=== PATIENT | male | born 1960 | race African-American/Black ===

== ENCOUNTER 2017-02-11 13:32 | Inpatient (IN) ==
--- NOTE | 2017-02-11 14:56 | Ultrasound Report ---
Right upper quadrant ultrasound Indication: Abdominal Pain, nausea vomiting Findings: The liver is normal in size and echogenicity. The gallbladder has small amount of sludge. No definite calculi are seen. The gallbladder wall thickness is 5.0 mm . The common bile duct measures 17 mm. The pancreatic head is enlarged with the decreased echogenicity, the mass measures up to 7.2 x 5.7 x 4.8 cm cm in size. There is enlargement of the pancreatic duct. This measures up to 4 mm. The right kidney is normal in size and measures 11.7 cm . Numerous system present on the kidney, the largest measures 4.8 x 3.6 x 3.0 cm in size. No free fluid or free air seen. Impression: Suggestion mass in the head of the pancreas measures up to 7.2 cm in size with distended bile duct and pancreatic ducts. CT may be useful to further evaluate this abnormality. Small amount of gallbladder sludge. Numerous simple appearing renal cyst. No other evidence of abnormality demonstrated. Ultrasound images stored and captured. PROCEDURE INTERPRETED AT [facility] DEPARTMENT OF RADIOLOGY Final Report Signed by: Dr. Dallas Hammond
[2017-02-11 17:28] LABS: Basophils # 0.1 10*3/uL (0.0-0.2); Basophils % 1.2 % (0.0-0.8); Eosinophils # 0.8 10*3/uL (0.0-0.87); Eosinophils % 11.5 % (0.00-10.9); Hematocrit 26.8 VOL% (42.0-52.0); Immature Granulocytes % 0.4 %; Immature Granulocytes Absolute 0.03 #; Lymphocytes # 1.2 10*3/uL (1.4-4.0); Lymphocytes % 16.7 % (21.2-54.2); Mean Corpuscular HGB Conc 33.6 GM/DL (32-36); Mean Corpuscular Hemoglobin 30 PG (27-34); Mean Corpuscular Volume 88.2 FL (87-102); Mean Platelet Volume 9.2 FL (9.6-12.0); Monocytes # 0.5 10*3/uL (0.11-0.8); Monocytes % 7.8 % (1.7-12.7); Neutrophils # 4.3 10*3/uL (1.4-7.4); Neutrophils % 62.4 % (38.7-73.9); Platelet Count 236 T/CUMM (130-400); Red Blood Count 3.04 MC/CUMM (3.8-5.5); Red Cell Distribution Width 23.7 % (9.3-17.3)
--- NOTE | 2017-02-11 17:47 | Hospitalist History & Physical ---
Assessment and Plan (1) Obstructive jaundice Status: Acute Current Visit: Yes (2) Pancreatic mass Status: Acute Current Visit: Yes (3) End stage renal disease Status: Acute Current Visit: Yes (4) Hypertension Status: Acute Assessment and plan: Plan for this patient 1. Admit the patient our service 2. GI consult 3. CT scan with p.o. and IV contrast 4. Nephrology consult 5. Continue home meds appropriate 6. Suspect this is cancer check tumor markers 7. CMP tonight and tomorrow Current Visit: Yes History of Present Illness Chief complaint: Pancreatic mass per ultrasound History of present illness: Mr. Millan is a 57 year old male with past medical history significant for end- stage renal disease and obstructive sleep apnea who was at hemodialysis yesterday. Apparently patient was noted is being real jaundice in his eyes. They scheduled him for an ultrasound. Per ultrasound he had an obstructive jaundice appearance. We were contacted by the wood patternmaker apprentice on-call. We are admitting the patient to our service and consulting them. According to the patient he has had nausea and vomiting and diarrhea 3-4 weeks. He has had a weight loss of 50 pounds over the past few months. We are admitting him as a direct inpatient admit. Home Medications Medication Instructions Recorded Confirmed Type Calcium Acetate 2,668 mg PO TID 02/11/17 02/11/17 History Cinacalcet HCl [Sensipar] 90 mg PO DAILY 02/11/17 02/11/17 History Labetalol Tab [Trandate Tab] 200 mg PO BID 02/11/17 02/11/17 History NIFEdipine [Nifedipine ER] 60 mg PO DAILY 02/11/17 02/11/17 History Allergies Allergy/AdvReac Type Severity Reaction Status Date / Time No Known Allergies Allergy Verified 02/11/17 17:03 Medical,Surgical,& Family Hx - Medical History Cardio: History of: Hypertension Neurology: No history of: Seizures Renal: History of: Dialysis - Surgical History Reproductive Surgeries: Surgical HX of;: Genitourinary Surgery (graft for dialysis) - Family History Family History: Reports;: Family Cancer (Mother), Family Hypertension (Both parents) - Social History Smoking Status: Never smoker Frequency of Alcohol Use: None Type of Drug Use: None 12 point system: reviewed and no additional remarkable complaints except as stated Exam - Constitutional Vitals: Period Temp Pulse Resp BP Sys/Watson Pulse Ox Last 24 Hr 97.6 F 106 20 135/91 96 General appearance: normal weight - Head Head exam: Present: normal inspection - Eye Eye exam: Present: scleral icterus - ENT ENT exam: Present: normal exam - Neck Neck exam: Present: normal inspection - Respiratory Respiratory exam: Present: clear to auscultation bilaterally - Cardiovascular Cardiovascular exam: Present: irregular rhythm - GI/Abdominal GI/Abdominal exam: Present: normal bowel sounds, tenderness (Mild tenderness particularly at the epigastrium and left lower quadrant) - Extremities Exam Extremities exam: Present: normal inspection - Back Exam Back exam: Present: CVA tenderness (L) - Neurological Exam Neurological exam: Present: alert, oriented X3 - Psychiatric Psychiatric exam: Present: normal affect, normal mood - Skin Skin exam: Present: other (Jaundice) Results - Labs CBC & BMP: 02/11/17 17:09
[2017-02-11 18:04] LABS: Albumin 2.9 G/DL (3.4-5.0); Calcium 10.2 MG/DL (8.5-10.1); Osmolality,Calculated 267.4 MOS/KG (273-304); Potassium 3.9 MMOL/L (3.5-5.1); Total Protein 7.2 G/DL (6.4-8.3)
--- NOTE | 2017-02-11 19:16 | Nephrology Consult Note ---
History of Present Illness Chief complaint: End-stage renal disease History of present illness: Mr. Millan is a 57 year old male history of end-stage renal disease due to hypertension presented with abdominal pain for the last 2 weeks noted at his outside dialysis clinic. Moreover, the patient reports nausea vomiting as well as diarrhea. The gentleman reports a 50 pound weight loss in the last several weeks. He had been feeling a little feverish over the last couple of days. He had an abdominal ultrasound done today which showed evidence of a pancreatic mass that measured 7.2 cm in size with a distended bile duct and pancreatic duct. The patient has noticed some yellowing of his eyes over the last several days. He is now admitted for further workup of this obstructive jaundice with evidence of pancreatic mass. Nephrology is consulted for renal issues. The patient typically dialyzes on a Wednesday schedule at the [place] dialysis unit. Home Medications Medication Instructions Recorded Confirmed Type Calcium Acetate 2,668 mg PO TID 02/11/17 02/11/17 History Cinacalcet HCl [Sensipar] 90 mg PO DAILY 02/11/17 02/11/17 History Labetalol Tab [Trandate Tab] 200 mg PO BID 02/11/17 02/11/17 History NIFEdipine [Nifedipine ER] 60 mg PO DAILY 02/11/17 02/11/17 History Allergies Allergy/AdvReac Type Severity Reaction Status Date / Time No Known Allergies Allergy Verified 02/11/17 17:03 Medical,Surgical,& Family Hx - Medical History Cardio: History of: Hypertension Neurology: No history of: Seizures Renal: History of: Dialysis - Surgical History Reproductive Surgeries: Surgical HX of;: Genitourinary Surgery (graft for dialysis) - Family History Family History: Reports;: Family Cancer (Mother), Family Hypertension (Both parents) - Social History Smoking Status: Never smoker Frequency of Alcohol Use: None Type of Drug Use: None Review of Systems Constitutional: chills Gastrointestinal: abdominal pain, loose stools, nausea, jaundice Neurological: no abnormal gait Hematologic/Lymphatic: no easy bruising Exam - Vital Signs Vital signs: Period Temp Pulse Resp BP Sys/Watson Pulse Ox Last 24 Hr 97.6 F 106 20 135/91 96 - General Appearance General appearance: chronically ill EENT: scleral icterus Neck: supple Respiratory: clear Cardiology: no edema, regular rate, regular rhythm Gastrointestinal: normoactive bowel sounds, no tenderness Neurologic: alert and oriented x3, CN 3-12 intact Musculoskeletal: no clubbing Psychiatric: mood/affect appropriate, cooperative Results - Labs CBC & BMP: 02/11/17 17:09 02/11/17 17:09 Assessment and Plan (1) Obstructive jaundice Status: Acute Current Visit: Yes (2) Pancreatic mass Status: Acute Assessment and plan: CT of the abdomen schedule Current Visit: Yes (3) End stage renal disease Status: Chronic Assessment and plan: Continue with schedule hemodialysis for this patient. Current Visit: Yes (4) Hypertension Status: Chronic Current Visit: Yes Qualifiers: Hypertension type: essential hypertension Qualified Code(s): I10 - Essential (primary) hypertension
--- NOTE | 2017-02-11 19:20 | CT Report ---
History: Pancreatic mass Date: 02/11/2017 Study: CT abdomen and pelvis with IV contrast Comparison exam: No previous CT abdomen currently available Technique: Spiral CT sections were obtained from the lung bases to the pubic symphysis following oral contrast and 100 mL Omnipaque [address] abdomen: The partially visualized lung bases are generally clear. There is an abnormal ill-defined low density mass in the head of the pancreas measuring 42 x 38 x 39 mm maximum dimensions. There is both pancreatic ductal dilatation and intra and extrahepatic biliary dilatation. The common bile duct measures 16 mm diameter. There is mild gallbladder wall thickening. There is an ill-defined 27 mm mass at the inferior margin of the lateral segment of the left lobe the liver which could represent metastatic lesion. The spleen is mildly prominent but without focal lesion. The adrenal glands are unremarkable. There are numerous nonenhancing cysts within the atrophic kidneys in this patient known to be on dialysis. Some of these are mildly complex with partial internal septation. There is no obvious enhancing solid mass. There is no gross lymphadenopathy by short axis diameter criteria. There is no aneurysm of the moderately calcified abdominal aorta. There is a small fat-containing periumbilical hernia. There is no bowel obstruction. CT pelvis: Small fat-containing inguinal hernias are present bilaterally. There is no soft tissue mass in the pelvis. There are some sclerotic changes of renal osteodystrophy scattered throughout the lumbar spine. There are some occasional small scattered Schmorl's nodes. Impression: 4.2 cm pancreatic mass which likely represents pancreatic carcinoma. There is a 27 mm mass in the lateral segment of the left lobe of the liver inferiorly which is suspicious for hepatic metastatic lesion. Details above The CT exam was performed using one or more of the following dose reduction techniques: Automated exposure control, adjustment of the mA and/or kV according to patient size, or use of iterative reconstruction technique. PROCEDURE INTERPRETED AT [facility] DEPARTMENT OF RADIOLOGY Final Report Signed by: Dr. Leesa Bergeron
[2017-02-11 19:22] LABS: Eosinophils 17 % (0-10); Lymphocytes 15 % (20-55); Platelet Estimate Normal; Segmented Neutrophils 64 % (50-85); Total Cells Counted 100
[2017-02-11 19:23] LABS: Hypochromasia Slight; Poikilocytosis 1+; Target Cells Few; Tear Drop Cells Few
[2017-02-11] MEDS: CALCIUM ACETATE 667 MG CAPSULE PO SCH (21:15)
[2017-02-11] MEDS: LABETALOL 200 MG TABLET PO SCH (21:16)
[2017-02-12 06:29] LABS: Basophils # 0.1 10*3/uL (0.0-0.2); Basophils % 1.3 % (0.0-0.8); Eosinophils # 0.9 10*3/uL (0.0-0.87); Eosinophils % 13.1 % (0.00-10.9); Hematocrit 24.1 VOL% (42.0-52.0); Hemoglobin 8.1 GM/DL (14.0-18.0); Immature Granulocytes % 0.6 %; Immature Granulocytes Absolute 0.04 #; Lymphocytes # 1.1 10*3/uL (1.4-4.0); Lymphocytes % 16.2 % (21.2-54.2); Mean Corpuscular HGB Conc 33.6 GM/DL (32-36); Mean Corpuscular Hemoglobin 29 PG (27-34); Mean Corpuscular Volume 86.4 FL (87-102); Monocytes # 0.7 10*3/uL (0.11-0.8); Monocytes % 9.8 % (1.7-12.7); Platelet Count 253 T/CUMM (130-400); Red Blood Count 2.79 MC/CUMM (3.8-5.5); Red Cell Distribution Width 23.3 % (9.3-17.3); White Blood Count 6.7 T/CUMM (4-12)
[2017-02-12 06:51] LABS: Eosinophils 8 % (0-10); Hypochromasia 1+; Lymphocytes 12 % (20-55); Ovalocytes Slight; Platelet Estimate Adequate; Segmented Neutrophils 68 % (50-85); Total Cells Counted 100
[2017-02-12 06:52] LABS: Giant Platelets Few; Target Cells Few
[2017-02-12 07:03] LABS: Albumin 2.5 G/DL (3.4-5.0); Calcium 9.4 MG/DL (8.5-10.1); Osmolality,Calculated 270.5 MOS/KG (273-304); Total Protein 6.2 G/DL (6.4-8.3)
[2017-02-12 07:14] LABS: Bilirubin,Total 15.3 MG/DL (0.2-1.0)
[2017-02-12 08:07] LABS: Cancer Antigen 19-9 409.6 U/ML (0-37); Carcinoembryonic Antigen 0.7 NG/ML (0.0-5.0)
[2017-02-12] MEDS: CALCIUM ACETATE 667 MG CAPSULE PO SCH ×3 (08:27→20:48)
[2017-02-12] MEDS: PANTOPRAZOLE 40 MG TABLET PO SCH (08:28)
[2017-02-12] MEDS: LABETALOL 200 MG TABLET PO SCH ×2 (08:28→20:49)
[2017-02-12] MEDS: CINACALCET 30 MG TABLET PO SCH (08:28)
--- NOTE | 2017-02-12 09:23 | Dialysis Note ---
Dialysis Note - Dialysis Note Patient is seen on dialysis. He is tolerating the procedure. Blood pressure is 116/70. Cardiovascular regular rate. Lungs clear to auscultation. Abdomen is soft.
--- NOTE | 2017-02-12 11:31 | Gastrointestinal Consult Note ---
<Jacey Conklin - Last Filed: 02/12/17 11:29> Assessment and Plan (1) Pancreatic mass Status: Acute Assessment and plan: 02/12-3-4 week history of abdominal pain, with nausea, vomiting and diarrhea. Admitted with elevated bilirubin at [address] of abdomen of 4.2 cm pancreatic mass as well as 27 mm mass in left lobe of liver suspicious for metastatic lesion. CA-19-9 elevated at 409. Father plan an addendum to followed by Dr. Cardenas. Current Visit: Yes History of Present Illness Chief complaint: Pancreatic mass History of present illness: Mr. Millan is a 57 year old male who was admitted to the hospital on yesterday with complaints of abdominal pain for the last 2-3 weeks. Patient has a history of end-stage renal disease and is dialyzed on Wednesdays and Fridays. He states that he was in his usual state of health and approximately 3 weeks ago when he had an onset of some upper left quadrant abdominal pain that was associated with episodes of nausea and vomiting. He also states that there were episodes of diarrhea associated with this. He describes vomiting dark emesis as well as having loose dark stools. He denies any overt bright red bleeding associated with this. Patient does state that he has lost approximately 50 pounds over the last several months due to decreased appetite. He denies any fever, chills or other complaints at this time. He did state that he noticed several days ago that his eyes have been becoming more yellow. He was admitted to our facility for further workup and upon admission he had a CT of the abdomen done which showed 4.2 cm pancreatic mass representing pancreatic carcinoma as well as a 27 mm mass in the left lobe of the liver suspicious for hepatic metastatic lesion. Gallbladder ultrasound shows suggestion of mass in the head of the pancreas at 7.2 cm with distended bile duct and pancreatic ducts. He was also admitted with a bilirubin of 17, now down to 15.3 with elevated transaminases. His AFP was normal as well as a CEA however his CA-19-9 is elevated at 409. He denies a history of tobacco or alcohol use. Home Medications Medication Instructions Recorded Confirmed Type Calcium Acetate 2,668 mg PO TID 02/11/17 02/11/17 History Cinacalcet HCl [Sensipar] 90 mg PO DAILY 02/11/17 02/11/17 History Labetalol Tab [Trandate Tab] 200 mg PO BID 02/11/17 02/11/17 History NIFEdipine [Nifedipine ER] 60 mg PO DAILY 02/11/17 02/11/17 History Allergies Allergy/AdvReac Type Severity Reaction Status Date / Time No Known Allergies Allergy Verified 02/11/17 17:03 Medical,Surgical,& Family Hx - Medical History Cardio: History of: Hypertension Neurology: No history of: Seizures Renal: History of: Dialysis - Surgical History Reproductive Surgeries: Surgical HX of;: Genitourinary Surgery (graft for dialysis) - Family History Family History: Reports;: Family Cancer (Mother), Family Hypertension (Both parents) - Social History Smoking Status: Never smoker Frequency of Alcohol Use: None Type of Drug Use: None 12 point system: reviewed and no additional remarkable complaints except as stated - Constitutional Constitutional: Present: as per HPI - EENT Eyes: Present: as per HPI Ears: Present: as per HPI Nose, mouth and throat: Present: as per HPI - Cardiovascular Cardiovascular: Present: as per HPI - Respiratory Respiratory: Present: as per HPI - Gastrointestinal Gastrointestinal: Present: as per HPI, abdominal pain, diarrhea, nausea, vomiting - Genitourinary Genitourinary: Present: as per HPI - Musculoskeletal Musculoskeletal: Present: as per HPI - Neurological Neurological: Present: as per HPI - Psychiatric Psychiatric: Present: as per HPI - Endocrine Endocrine: Present: as per HPI - Hematologic/Lymphatic Hematologic/Lymphatic: Present: as per HPI Exam - Constitutional Vitals: Period Temp Pulse Resp BP Sys/Watson Pulse Ox Last 24 Hr 97.6 F-98.5 F 87-112 16-20 129-155/68-91 95-98 General appearance: normal weight, no acute distress - Head Head exam: Present: normal inspection, normocephalic - Eye Eye exam: Present: scleral icterus, other - ENT ENT exam: Present: normal exam, normal oropharynx - Neck Neck exam: Present: normal inspection - Respiratory Respiratory exam: Present: clear to auscultation bilaterally. Absent: rales, rhonchi, wheezes - Cardiovascular Cardiovascular exam: Present: regular rate and rhythm. Absent: diastolic murmur , JVD, systolic murmur - GI/Abdominal GI/Abdominal exam: Present: normal bowel sounds, soft. Absent: ascites, distended, mass, organomegaly, tenderness - Extremities Exam Extremities exam: Present: normal inspection, full ROM - Back Exam Back exam: Present: normal inspection - Neurological Exam Neurological exam: Present: alert, oriented X3 - Psychiatric Psychiatric exam: Present: normal affect, normal mood - Skin Skin exam: Present: normal color, warm, dry Results - Labs CBC & BMP: 02/12/17 05:17 02/12/17 05:17 Lab Results: I have reviewed the past 24 hour labs - Diagnostic Findings Procedure: CT Abdomen and Pelvis: report reviewed by me <Peter Cardenas - Last Filed: 02/12/17 16:21> History of Present Illness Chief complaint: 3030 History of present illness: Mr. Millan is a 57 year old male Exam - Constitutional Vitals: Period Temp Pulse Resp BP Sys/Watson Pulse Ox Last 24 Hr 97.6 F-99.5 F 84-112 16-20 118-155/68-91 92-98 Results - Labs CBC & BMP: 02/12/17 05:17 02/12/17 05:17
[2017-02-12] MEDS ORDERED: LEVOFLOXACIN INJ 500 MG in PREMIX 1 EACH IV ONE (14:00)
--- NOTE | 2017-02-12 16:23 | Hospitalist Progress Note ---
Hospitalist: Subjective Interval history: Patient states that his abdominal pain has resolved. He states that he has been able to eat without any n/v. He denies any n/v/diarrhea. Exam - Constitutional Vitals: Period Temp Pulse Resp BP Sys/Watson Pulse Ox Last 24 Hr 97.6 F-99.5 F 84-112 16-20 118-155/68-91 92-98 General appearance: no acute distress, over weight - Head Head exam: Present: normal inspection - Eye Eye exam: Present: EOMI, scleral icterus Pupils: Present: NENITA - ENT ENT exam: Present: normal exam, normal oropharynx - Respiratory Respiratory exam: Present: clear to auscultation bilaterally - Cardiovascular Cardiovascular exam: Present: regular rate and rhythm - GI/Abdominal GI/Abdominal exam: Present: normal bowel sounds, soft. Absent: distended, mass , tenderness - Extremities Exam Extremities exam: Absent: edema - Neurological Exam Neurological exam: Present: alert, oriented X3 - Psychiatric Psychiatric exam: Present: normal affect, normal mood - Skin Skin exam: Present: other (jaundice) Results - Labs CBC & BMP: 02/12/17 05:17 02/12/17 05:17 - Impressions Active Issues: 1. Acute abdominal pain, resolving 2. Pancreatic mass 3. Liver lesion, suspicious for metastasis 4. Obstructive Jaundice 5. Elevated LFTs, cholestatic pattern 6. Elevated Ca 19-9 7. ESRD on HD 8. h/o HTN: bp controlled Plan: appreciate help by GI; continue supportive care with pain control, antiemetics; scheduled HD; continue bp agent.
[2017-02-12] MEDS: ZALEPLON 5 MG CAPSULE PO PRN (20:49)
[2017-02-13 04:10] LABS: Basophils # 0.1 10*3/uL (0.0-0.2); Basophils % 0.8 % (0.0-0.8); Eosinophils # 0.8 10*3/uL (0.0-0.87); Eosinophils % 12.3 % (0.00-10.9); Hematocrit 23.3 VOL% (42.0-52.0); Hemoglobin 7.8 GM/DL (14.0-18.0); Immature Granulocytes % 0.5 %; Immature Granulocytes Absolute 0.03 #; Lymphocytes # 0.9 10*3/uL (1.4-4.0); Lymphocytes % 13.5 % (21.2-54.2); Mean Corpuscular HGB Conc 33.5 GM/DL (32-36); Mean Corpuscular Hemoglobin 29 PG (27-34); Mean Corpuscular Volume 87.9 FL (87-102); Mean Platelet Volume 9.3 FL (9.6-12.0); Monocytes # 0.6 10*3/uL (0.11-0.8); Monocytes % 9.9 % (1.7-12.7); Neutrophils # 4.1 10*3/uL (1.4-7.4); Platelet Count 216 T/CUMM (130-400); Red Blood Count 2.65 MC/CUMM (3.8-5.5); Red Cell Distribution Width 23.9 % (9.3-17.3); White Blood Count 6.4 T/CUMM (4-12)
[2017-02-13 04:44] LABS: Albumin 2.3 G/DL (3.4-5.0); Calcium 9.2 MG/DL (8.5-10.1); Osmolality,Calculated 271.2 MOS/KG (273-304); Potassium 3.7 MMOL/L (3.5-5.1); Total Protein 5.9 G/DL (6.4-8.3)
[2017-02-13 05:01] LABS: Bilirubin,Total 15.1 MG/DL (0.2-1.0)
[2017-02-13 05:49] LABS: Band Neutrophils 6 % (0-10); Eosinophils 13 % (0-10); Lymphocytes 12 % (20-55); Platelet Estimate Normal; Segmented Neutrophils 67 % (50-85); Smudge Cells Few; Total Cells Counted 100
[2017-02-13 05:50] LABS: Anisocytosis 2+; Hypochromasia 1+; Stomatocytes Few
[2017-02-13 05:51] LABS: Target Cells Few
[2017-02-13] MEDS: CALCIUM ACETATE 667 MG CAPSULE PO SCH ×3 (09:02→21:45)
[2017-02-13] MEDS: PANTOPRAZOLE 40 MG TABLET PO SCH (09:03)
[2017-02-13] MEDS: LABETALOL 200 MG TABLET PO SCH ×2 (09:03→21:44)
[2017-02-13] MEDS: CINACALCET 30 MG TABLET PO SCH (09:03)
--- NOTE | 2017-02-13 12:51 | Nephrology Progress Note ---
Nephrology - PN: Subj Interval history: Mr. Millan is seen in follow-up of his end-stage renal disease. He dialyzed yesterday and did well. He has significant jaundice and will likely be undergoing ERCP with possible stent placement the first of the week. He has a pancreatic mass and an elevated CA-19-9 all suggested pancreatic cancer. Workup will be continuing and will dialyze as per his usual schedule. Has a clear chest and a is in no distress. He does say that his he has early satiety and is not eating well. Exam (PN)-Nephrology - Vital Signs Vital signs: Period Temp Pulse Resp BP Sys/Watson Pulse Ox Last 24 Hr 97.2 F-99.5 F 84-96 17-20 98-131/51-89 92-96 - Lab 02/13/17 03:06 02/13/17 03:06 Most recent lab results Calcium 9.2 MG/DL (8.5-10.1) 02/13/17 03:06
--- NOTE | 2017-02-13 13:12 | Event Note ---
Chief complaint pancreatic cancer Patient without complaints of nausea and vomiting or pain today. Plans for ERCP and possible stent placement as well as interventional radiology and biopsy have been discussed and he is agreeable. He has no evidence of cholangitis or acute symptoms at this time. Review of systems denies any shortness of breath or chest pain On exam no acute distress with icteric sclera lids conjunctiva was otherwise unremarkable oropharynx is benign neck is supple no JVD no thyromegaly lungs clear to auscultation no respiratory distress heart regular rate rhythm no murmur abdomen soft protuberant nondistended nontender bowel sounds normoactive extremities no clubbing cyanosis or edema all 4 extremities. Recommendations: We will plan ERCP and interventional radiology consult on Wednesday unless this conflict with his dialysis in which case we can shoot for Wednesday. Continue IV Levaquin.
--- NOTE | 2017-02-13 13:13 | Hospitalist Progress Note ---
Hospitalist: Subjective Interval history: Patient states that he has some mild abdominal pain. He is able to tolerate his diet and denies any n/v. He has no further complaints. Exam - Constitutional Vitals: Period Temp Pulse Resp BP Sys/Watson Pulse Ox Last 24 Hr 97.2 F-99.5 F 84-96 17-20 98-131/51-89 92-96 General appearance: no acute distress - Head Head exam: Present: normal inspection - Eye Eye exam: Present: EOMI, scleral icterus Pupils: Present: NENITA - Respiratory Respiratory exam: Present: clear to auscultation bilaterally - Cardiovascular Cardiovascular exam: Present: regular rate and rhythm - GI/Abdominal GI/Abdominal exam: Present: normal bowel sounds, tenderness (RLQ tenderness; no rebound or guarding), soft - Extremities Exam Extremities exam: Absent: edema - Neurological Exam Neurological exam: Present: alert, oriented X3 - Psychiatric Psychiatric exam: Present: normal affect, normal mood - Skin Skin exam: Present: other (jaundice) Results - Labs CBC & BMP: 02/13/17 03:06 02/13/17 03:06 - Impressions Active Issues: 1. Acute abdominal pain, improving 2. Pancreatic mass 3. Liver lesion, suspicious for metastasis 4. Obstructive Jaundice 5. Elevated LFTs, cholestatic pattern 6. Elevated Ca 19-9 7. ESRD on HD; appreciate help by nephrology 8. h/o HTN: bp controlled 9. Anemia: HCT is slowing decreasing; transfuse if Hb<7 or <8 and symptomatic; he may benefit from epogen; will check iron stores Plan: appreciate help by GI; ERCP with possible stent placement next week; continue supportive care with pain control, antiemetics; scheduled HD; continue adalat.
[2017-02-13] MEDS: HYDROmorphone 2 MG/1 ML VIAL IV PRN (18:05)
[2017-02-14 06:28] LABS: % Iron Saturation 28.6 % (18-50)
[2017-02-14] MEDS: HYDROmorphone 2 MG/1 ML VIAL IV PRN ×3 (07:00→21:04)
[2017-02-14] MEDS: PANTOPRAZOLE 40 MG TABLET PO SCH (09:49)
[2017-02-14] MEDS: CINACALCET 30 MG TABLET PO SCH (09:49)
[2017-02-14] MEDS: LABETALOL 200 MG TABLET PO SCH ×2 (09:49→21:02)
[2017-02-14] MEDS: CALCIUM ACETATE 667 MG CAPSULE PO SCH ×3 (09:49→21:03)
--- NOTE | 2017-02-14 10:43 | Nephrology Progress Note ---
Nephrology - PN: Subj Interval history: Mr. Millan is seen in follow-up of his end-stage renal disease. He is generally feeling well. His sclera are anicteric. He is complaining of no pain today. He will have dialysis tomorrow and the plan is to proceed with diagnoses of his pancreatic liver mass and possible biliary stenting. Exam (PN)-Nephrology - Vital Signs Vital signs: Period Temp Pulse Resp BP Sys/Watson Pulse Ox Last 24 Hr 97.6 F-99.1 F 68-97 18-21 111-174/58-87 92-98 - Lab 02/13/17 03:06 02/13/17 03:06 Most recent lab results Calcium 9.2 MG/DL (8.5-10.1) 02/13/17 03:06
--- NOTE | 2017-02-14 11:34 | Nephrology Progress Note ---
Nephrology - PN: Subj Interval history: Patient is resting comfortably no acute changes. No shortness of breath, no abdominal pain. Plan for ERCP sometime this week. Will continue with current medical management for this patient. Exam (PN)-Nephrology - Vital Signs Vital signs: Period Temp Pulse Resp BP Sys/Watson Pulse Ox Last 24 Hr 97.6 F-99.1 F 68-97 18-21 111-174/58-87 92-98 - General Appearance General appearance: well-developed, well-nourished EENT: ATNC Neck: supple Respiratory: clear Cardiology: regular rate, regular rhythm Gastrointestinal: normoactive bowel sounds, no tenderness Neurologic: alert and oriented x3 Musculoskeletal: no deformities Psychiatric: mood/affect appropriate, cooperative - Lab 02/13/17 03:06 02/13/17 03:06 Most recent lab results Calcium 9.2 MG/DL (8.5-10.1) 02/13/17 03:06 Assessment and Plan (1) Obstructive jaundice Status: Acute Current Visit: Yes (2) Pancreatic mass Status: Acute Assessment and plan: CT of the abdomen schedule Current Visit: Yes (3) End stage renal disease Status: Chronic Assessment and plan: Continue with schedule hemodialysis for this patient. Current Visit: Yes (4) Hypertension Status: Chronic Current Visit: Yes Qualifiers: Hypertension type: essential hypertension Qualified Code(s): I10 - Essential (primary) hypertension
--- NOTE | 2017-02-14 13:31 | Event Note ---
Chief complaint pancreatic cancer with jaundice He is afebrile he is having no complaints of pain today. Will need interventional radiology to evaluate for biopsy and tissue diagnosis and ERCP for likely stent placement. Patient is scheduled for hemodialysis tomorrow which may preclude getting ERCP or biopsy done and we may need to reschedule these for Wednesday. He is afebrile continue IV antibiotics and observe. Review of systems he denies any shortness of breath chest pain On exam sclerae anicteric lids conjunctiva was unremarkable neck is supple no JVD lungs clear to auscultation heart regular rate and rhythm no murmur abdomen soft nondistended nontender no masses no hepatosplenomegaly bowel sounds normoactive extremities no clubbing cyanosis edema all 4 extremities. He is afebrile vital signs are stable. Recommendations: Consult interventional radiology for biopsy and plan ERCP with sphincterotomy either tomorrow or Wednesday pending plans for dialysis.
[2017-02-14] MEDS: LEVOFLOXACIN INJ 250 MG in PREMIX 1 EACH IV SCH (15:02)
[2017-02-14] MEDS: BISACODYL 5 MG TABLET PO PRN (17:58)
[2017-02-14] MEDS: DOCUSATE SODIUM 100 MG CAPSULE PO SCH (21:02)
[2017-02-14] MEDS: ZALEPLON 5 MG CAPSULE PO PRN (23:17)
[2017-02-15] MEDS: HYDROmorphone 2 MG/1 ML VIAL IV PRN ×5 (00:17→21:39)
--- NOTE | 2017-02-15 08:45 | EKG Report ---
Stationary ECG Study [facility] Test Date: 02/15/2017 8:46:19 AM Pat Name: SAVAGE DURÁN Department: Room: 421 Gender: M Resident Inspector: MONTSE : 1960 Requested by: Darcie Friedman Order Number: [id number] Reading MD: MAK MUNOZ Intervals [place] Rate: 87 P: 999 [place]: 0 QRS: 0 QRSD: 103 T: 89 QT: 403 QTc: 448 Interpretive Statements ATRIAL FIBRILLATION LATERAL MYOCARDIAL INFARCTION Electronically Signed On 02-15-17 19:22:51 CDT by MAK MUNOZ [email or web address]
[2017-02-15 08:50] LABS: Basophils % 0.3 % (0.0-0.8); Eosinophils # 0.7 10*3/uL (0.0-0.87); Hematocrit 22.2 VOL% (42.0-52.0); Hemoglobin 7.6 GM/DL (14.0-18.0); Immature Granulocytes % 0.6 %; Immature Granulocytes Absolute 0.04 #; Lymphocytes # 0.7 10*3/uL (1.4-4.0); Lymphocytes % 10.3 % (21.2-54.2); Mean Corpuscular HGB Conc 34.2 GM/DL (32-36); Mean Corpuscular Hemoglobin 30 PG (27-34); Mean Corpuscular Volume 87.1 FL (87-102); Mean Platelet Volume 8.8 FL (9.6-12.0); Monocytes # 0.7 10*3/uL (0.11-0.8); Monocytes % 9.3 % (1.7-12.7); Neutrophils % 69.5 % (38.7-73.9); Platelet Count 165 T/CUMM (130-400); Red Blood Count 2.55 MC/CUMM (3.8-5.5); Red Cell Distribution Width 25.1 % (9.3-17.3); White Blood Count 7.1 T/CUMM (4-12)
[2017-02-15 09:10] LABS: Giant Platelets Few; Hypochromasia 1+; Ovalocytes Slight; Platelet Estimate Normal
--- NOTE | 2017-02-15 09:37 | Gastrointestinal Progress Note ---
<KaterinJacey Jacky - Last Filed: 02/15/17 09:34> Assessment and Plan (1) Pancreatic mass Status: Acute Assessment and plan: 02/15-no changes at this time. We will plan to postpone ERCP tomorrow to allow patient to dialyze today. Continue to monitor this time. Plan an addendum to followed by Dr. Cardenas. 02/12-3-4 week history of abdominal pain, with nausea, vomiting and diarrhea. Admitted with elevated bilirubin at [address] of abdomen of 4.2 cm pancreatic mass as well as 27 mm mass in left lobe of liver suspicious for metastatic lesion. CA-19-9 elevated at 409. Father plan an addendum to followed by Dr. Cardenas. Current Visit: Yes Gastroenterology - PN: Subj Interval history: CC: Pancreatic mass Patient is seen awake alert sitting up in bed. States he had an uneventful night. Patient states that he does not have much of an appetite because when he does eat he becomes nauseated at times have some vomiting episodes. He was tentatively scheduled for an ERCP today however he is noted to have a drop in his H&H at 12/19 with no overt bleeding. He is also scheduled for dialysis today. His morning labs are still pending at this time. There is also notation of new onset atrial fibrillation with controlled rate. Discussed with Dr. Child as well as Dr. Rose and at this time we agreed to go ahead and dialyze and possibly transfuse today and postpone ERCP until tomorrow. Abdomen soft, nontender. ROS: Denies shortness breath or chest pain Exam (Progress Note) - Constitutional Vitals: Period Temp Pulse Resp BP Sys/Watson Pulse Ox Last 24 Hr 97.5 F-98.7 F 84-99 16-20 94-152/50-104 92-97 General appearance: normal weight, no acute distress - Head Head exam: Present: normal inspection, normocephalic - Eye Eye exam: Present: scleral icterus, other (Lids and conjunctivae are unremarkable) - ENT ENT exam: Present: normal exam, normal oropharynx - Neck Neck exam: Present: normal inspection - Respiratory Respiratory exam: Present: clear to auscultation bilaterally. Absent: rales, rhonchi, wheezes - Cardiovascular Cardiovascular exam: Present: regular rate and rhythm. Absent: diastolic murmur , JVD, systolic murmur - GI/Abdominal GI/Abdominal exam: Present: normal bowel sounds, soft. Absent: ascites, distended, mass, organomegaly, tenderness - Extremities Exam Extremities exam: Present: normal inspection, full ROM - Back Exam Back exam: Present: normal inspection - Neurological Exam Neurological exam: Present: alert, oriented X3 - Psychiatric Psychiatric exam: Present: normal affect, normal mood - Skin Skin exam: Present: normal color, warm, dry, other (Jaundice) Results - Labs CBC & BMP: 02/15/17 08:37 02/13/17 03:06 Lab Results: I have reviewed the past 24 hour labs <Peter Cardenas - Last Filed: 02/15/17 10:46> Exam (Progress Note) - Constitutional Vitals: Period Temp Pulse Resp BP Sys/Watson Pulse Ox Last 24 Hr 97.5 F-98.7 F 84-99 16-20 94-152/50-104 92-97 Results - Labs CBC & BMP: 02/15/17 08:37 02/15/17 08:37
--- NOTE | 2017-02-15 09:38 | Nephrology Progress Note ---
Nephrology - PN: Subj Interval history: Patient is resting comfortably no acute changes. No shortness of breath, no abdominal pain. Plan for ERCP sometime this week. Will continue with current medical management for this patient. 02/15/2017. Patient states he had some abdominal discomfort this morning. Scheduled to have an ERCP done tomorrow. No fevers or chills. At this time dialysis today. Exam (PN)-Nephrology - Vital Signs Vital signs: Period Temp Pulse Resp BP Sys/Watson Pulse Ox Last 24 Hr 97.5 F-98.7 F 84-99 16-20 94-152/50-104 92-97 - General Appearance General appearance: well-developed, well-nourished EENT: ATNC Neck: no carotid bruit Respiratory: clear Cardiology: regular rate, regular rhythm Gastrointestinal: normoactive bowel sounds, no tenderness Neurologic: alert and oriented x3, CN 3-12 intact Musculoskeletal: no clubbing Psychiatric: mood/affect appropriate - Lab 02/15/17 08:37 02/13/17 03:06 Most recent lab results Calcium 9.2 MG/DL (8.5-10.1) 02/13/17 03:06 Assessment and Plan (1) Obstructive jaundice Status: Acute Current Visit: Yes (2) Pancreatic mass Status: Acute Assessment and plan: CT of the abdomen schedule Current Visit: Yes (3) End stage renal disease Status: Chronic Assessment and plan: Continue with schedule hemodialysis for this patient. Current Visit: Yes (4) Hypertension Status: Chronic Current Visit: Yes Qualifiers: Qualified Code(s): I10 - Essential (primary) hypertension
[2017-02-15] MEDS ORDERED: SODIUM CHLORIDE 0.9% 250 ML IV PRN (09:39)
[2017-02-15] MEDS: CALCIUM ACETATE 667 MG CAPSULE PO SCH ×3 (09:45→20:59)
[2017-02-15] MEDS: PANTOPRAZOLE 40 MG TABLET PO SCH (09:46)
[2017-02-15] MEDS: DOCUSATE SODIUM 100 MG CAPSULE PO SCH ×2 (09:46→20:59)
[2017-02-15] MEDS: LABETALOL 200 MG TABLET PO SCH ×2 (09:47→21:00)
[2017-02-15] MEDS: CINACALCET 30 MG TABLET PO SCH (09:47)
[2017-02-15 09:49] LABS: Albumin 2.1 G/DL (3.4-5.0); Calcium 8.5 MG/DL (8.5-10.1); Osmolality,Calculated 280.2 MOS/KG (273-304); Potassium 4.5 MMOL/L (3.5-5.1); Total Protein 5.7 G/DL (6.4-8.3)
[2017-02-15 09:54] LABS: Bilirubin,Total 19.1 MG/DL (0.2-1.0)
--- NOTE | 2017-02-15 13:33 | Hospitalist Progress Note ---
Assessment and Plan (1) Obstructive jaundice Status: Acute Assessment and plan: 1)jaundice- ERCP tomorrow. 2)afib- chronic, not anticoagulated. Consider whether he needs anticoagulation once anemia and procedures resolve. 3)anemia- no active bleeding. transfuse today. 4)ESRD on HD 5)constipation- lactulose. Current Visit: Yes (2) Pancreatic mass Status: Acute Current Visit: Yes (3) End stage renal disease Status: Chronic Current Visit: Yes (4) Hypertension Status: Chronic Current Visit: Yes Qualifiers: Hypertension type: essential hypertension Qualified Code(s): I10 - Essential (primary) hypertension Hospitalist: Subjective Interval history: Mr Millan is feeling ok this morning. His H&H has dropped and he will be transfused on dialysis. His ERCP is moved to tomorrow. He had no complaints other than constipation and denies pain. His EKG showed afib this morning and he tells me he has had this awhile and that his doctor stopped his anticoagulation about 6 months ago. He is constipated. Exam - Constitutional Vitals: Period Temp Pulse Resp BP Sys/Watson Pulse Ox Last 24 Hr 97.5 F-98.7 F 84-99 16-20 94-152/50-104 92-97 General appearance: normal weight, no acute distress - Eye Eye exam: Present: EOMI. Absent: scleral icterus - Respiratory Respiratory exam: Present: clear to auscultation bilaterally - Cardiovascular Cardiovascular exam: Present: regular rate and rhythm - GI/Abdominal GI/Abdominal exam: Present: normal bowel sounds, soft. Absent: tenderness - Extremities Exam Extremities exam: Absent: edema Results - Labs CBC & BMP: 02/15/17 08:37 02/15/17 08:37 Lab Results: I have reviewed the past 24 hour labs
--- NOTE | 2017-02-15 13:38 | Dialysis Note ---
Dialysis Note - Dialysis Note Patient is seen on dialysis. He is tolerating the procedure. Blood pressure is 144/88. Cardiovascular regular rate. Lungs clear to auscultation. Abdomen is soft.
[2017-02-15 13:45] LABS: Basophils % 0.5 % (0.0-0.8); Eosinophils # 0.5 10*3/uL (0.0-0.87); Hematocrit 19.9 VOL% (42.0-52.0); Immature Granulocytes % 0.6 %; Immature Granulocytes Absolute 0.04 #; Lymphocytes # 0.6 10*3/uL (1.4-4.0); Lymphocytes % 9.5 % (21.2-54.2); Mean Corpuscular HGB Conc 35.2 GM/DL (32-36); Mean Corpuscular Hemoglobin 30 PG (27-34); Mean Platelet Volume 9.4 FL (9.6-12.0); Monocytes # 0.5 10*3/uL (0.11-0.8); Monocytes % 7.2 % (1.7-12.7); Neutrophils # 4.8 10*3/uL (1.4-7.4); Neutrophils % 74.2 % (38.7-73.9); Platelet Count 164 T/CUMM (130-400); Red Blood Count 2.34 MC/CUMM (3.8-5.5); Red Cell Distribution Width 25.2 % (9.3-17.3); White Blood Count 6.4 T/CUMM (4-12)
[2017-02-15 13:58] LABS: INR 1.7; PT Patient Result 18.1 SECS
--- NOTE | 2017-02-15 14:50 | Cardiology Consult Note ---
Assessment and Plan - Time spent with patient Time spent with patient: Greater than 30 minutes (film and chart review, examin and interview.) (1) Paroxysmal atrial fibrillation Status: Chronic Assessment and plan: This patient has experienced atrial fibrillation in the past and he is currently in atrial fibrillation. Given his obstructive jaundice and need presumptively for further potential procedures I would not proceed with full dose anticoagulation at this time. Because of his renal insufficiency either warfarin or renal dose Eliquis would be ideal. The patient's rate is adequately controlled. He has known underlying coronary artery disease. I think given his massive left atrial enlargement his last echo and his underlying comorbidities he is not a candidate for procedures or antiarrhythmic therapy will recommend anticoagulation and rate control. We will repeat his transthoracic echo to ensure his EF has not declined. His anemia is probably contributing he has no signs or symptoms of ischemia at this time either by his EKG or clinically. Continue to follow and make final recommendations once the etiology of his obstructive jaundice is clarified completely to give some idea of long-term prognosis which seemed extremely poor especially in the face of what appears to likely be hepatic metastasis. Current Visit: Yes (2) Coronary artery disease Status: Acute Current Visit: Yes (3) Dyslipidemia Status: Chronic Current Visit: Yes (4) Obstructive jaundice Status: Acute Current Visit: Yes (5) Pancreatic mass Status: Acute Current Visit: Yes (6) End stage renal disease Status: Chronic Current Visit: Yes (7) Hypertension Status: Chronic Current Visit: Yes Qualifiers: Hypertension type: essential hypertension Qualified Code(s): I10 - Essential (primary) hypertension History of Present Illness - Data of Consult Patient: new to practice Consult date: 02/15/17 Requesting Physician: Darcie Londono - Consult Narrative Reason for consult: Newly diagnosed atrial fibrillation History of present illness: Mr. Millan is a 57 year old male who states he has had coronary artery disease previously followed by Dr. Magdaleno Sultana. He underwent PCI with Dr. Sultana in 2010. The last echocardiogram unable to find was from [facility] dated 11/20/2009 at which time his ejection fraction was greater than 55% he had marked left atrial enlargement measured at 6.1 cm and a small posterior pericardial effusion with 2+ tricuspid regurgitation according to Dr. Sultana's note. He has known coronary disease and received PCI of the mid RCA on 09/03/2010 and I reviewed those films. The patient denies any chest pain palpitations syncope or near syncope and he has not seen Dr. Sultana in some time. From review of the clinic chart it looks like he was last seen on May 10, 2013 by Isaak Pascual, VOCATIONAL COORDINATOR and internal medicine clinic for Dr. Sultana. It is documented in Mr. Garner's note the patient has paroxysmal atrial fibrillation coronary disease hypertension he previously has been on amiodarone he was anticoagulated and cardioverted his EF was 44%. The patient is unaware of any of his history but is found from the note dated May 10, 2013. The patient presents now for obstructive jaundice had a EGD today and found to have atrial fibrillation. This was seen on his EKG at 830 this morning. CC: Fernanda Rose MD - Home Medications and Allergies Home Medications: Home Medications Medication Instructions Recorded Confirmed Type Calcium Acetate 2,668 mg PO TID 02/11/17 02/11/17 History Cinacalcet HCl [Sensipar] 90 mg PO DAILY 02/11/17 02/11/17 History Labetalol Tab [Trandate Tab] 200 mg PO BID 02/11/17 02/11/17 History NIFEdipine [Nifedipine ER] 60 mg PO DAILY 02/11/17 02/11/17 History Allergies/Adverse Reactions: Allergies Allergy/AdvReac Type Severity Reaction Status Date / Time No Known Allergies Allergy Verified 02/11/17 17:03 - EENT Eyes: Absent: blurry vision, diplopia Ears: Absent: decreased hearing - Cardiovascular Cardiovascular: Absent: chest pain at rest, chest pain with activity, dyspnea, dyspnea on exertion, edema, radiating jaw, neck or arm pain, lightheadedness, orthopnea, palpitations - Respiratory Respiratory: Absent: cough, dyspnea, dyspnea on exertion - Gastrointestinal Gastrointestinal: Present: abdominal pain, bloating - Genitourinary Genitourinary: Absent: dysuria, hematuria - Musculoskeletal Musculoskeletal: Absent: arthralgias, joint swelling - Psychiatric Psychiatric: Present: depression. Absent: anxiety - Endocrine Endocrine: Absent: cold intolerance, heat intolerance - Hematologic/Lymphatic Hematologic/Lymphatic: Present: easy bruising. Absent: easy bleeding Medical,Surgical,& Family Hx - Medical History Cardio: History of: Cardiac Dysrhythmia (Paroxysmal atrial fibrillation), CAD ( PCI with HARSHA of the mid RCA in 2010), Hypertension Neurology: No history of: Seizures Renal: History of: Dialysis (Renal failure secondary to uncontrolled hypertension) - Surgical History Cardiac Surgeries: Sugical HX of: Vascular Access Devices Reproductive Surgeries: Surgical HX of;: Genitourinary Surgery (graft for dialysis) - Family History Family History: Reports;: Family Cancer (Mother), Family Hypertension (Both parents) - Social History Smoking Status: Never smoker Frequency of Alcohol Use: None Type of Drug Use: None Marital Status: Single Lives With:: Alone Functional capacity: independent ambulation Physical Examination Vital Signs Temp Pulse Resp BP Pulse Ox 97.6 F 106 H 20 135/91 96 02/11/17 16:55 02/11/17 16:55 02/11/17 16:55 02/11/17 16:55 02/11/17 16:55 General: Present: Other (Appears chronically ill. The patient was seen on dialysis) HEENT: Present: Pallor Cardiac: Present: Regular Rhythm, S1/S2 Lungs: Present: Normal Exam, Clear Ascult./Percussion Neuro: Present: Cranial Nerve 2-12 Intact, Motor Function Intact Abdomen: Present: Soft, Active Bowel Sounds, Other (He has periumbilical and epigastric tenderness bowel sounds are normal) Skin: Present: Clear Extremities: Present: No Edema. Absent: Edema Result/EKG - Labs CBC & BMP: 02/15/17 13:39 02/15/17 08:37 Labs: Laboratory Results - last 24 hr 02/15/17 02/15/17 02/15/17 08:35 08:37 08:37 WBC 7.1 RBC 2.55 L Hgb 7.6 L Hct 22.2 L MCV 87.1 MCH 30 MCHC 34.2 RDW 25.1 H Plt Count 165 D MPV 8.8 L Neut % (Auto) 69.5 Lymph % (Auto) 10.3 L Kingsbury % (Auto) 9.3 Eos % (Auto) 10.0 Baso % (Auto) 0.3 Neut # (Auto) 5.0 Lymph # (Auto) 0.7 L Kingsbury # (Auto) 0.7 Eos # (Auto) 0.7 Baso # (Auto) 0.0 Immature Gran % 0.6 Nucleated RBC % 0.0 Immature Gran # 0.04 Nucleated RBCs # 0.00 Platelet Estimate Normal Giant Platelets Few Immature Plt Fraction 0.0 Hypochromasia 1+ Ovalocytes Slight INR PT Patient/Control Mix Sodium 134 L Potassium 4.5 Chloride 94 L Carbon Dioxide 29 Anion Gap 15.5 H BUN 51 H Creatinine 10.80 H GFR Calculation 6 BUN/Creatinine Ratio 4.00 L Glucose 89 Calculated Osmolality 280.2 Calcium 8.5 Total Bilirubin 19.10 H* AST 108 H ALT 80 H Alkaline Phosphatase 947 H Total Protein 5.7 L Albumin 2.1 L Globulin 3.6 H Albumin/Globulin Ratio 0.5 L Blood Type B POSITIVE Antibody Screen Negative Crossmatch See Detail 02/15/17 02/15/17 02/15/17 13:39 13:39 Unknown WBC 6.4 RBC 2.34 L Hgb 7.0 L Hct 19.9 L MCV 85.0 L MCH 30 MCHC 35.2 RDW 25.2 H Plt Count 164 MPV 9.4 L Neut % (Auto) 74.2 H Lymph % (Auto) 9.5 L Kingsbury % (Auto) 7.2 Eos % (Auto) 8.0 Baso % (Auto) 0.5 Neut # (Auto) 4.8 Lymph # (Auto) 0.6 L Kingsbury # (Auto) 0.5 Eos # (Auto) 0.5 Baso # (Auto) 0.0 Immature Gran % 0.6 Nucleated RBC % 0.0 Immature Gran # 0.04 Nucleated RBCs # 0.00 Platelet Estimate Giant Platelets Immature Plt Fraction 0.0 Hypochromasia Ovalocytes INR 1.7 PT Patient/Control Mix 18.1 Sodium Potassium Chloride Carbon Dioxide Anion Gap BUN Creatinine GFR Calculation BUN/Creatinine Ratio Glucose Calculated Osmolality Calcium Total Bilirubin AST ALT Alkaline Phosphatase Total Protein Albumin Globulin Albumin/Globulin Ratio Blood Type B POSITIVE Antibody Screen Crossmatch - EKG EKG results: interpreted by me EKG shows: atrial fibrillation
[2017-02-15] MEDS: ONDANSETRON 4 MG/2 ML VIAL IV PRN (17:27)
[2017-02-15] MEDS: LACTULOSE 20 GM/30 ML UDCUP PO PRN (18:37)
[2017-02-16] MEDS: HYDROmorphone 2 MG/1 ML VIAL IV PRN ×3 (00:38→06:46)
[2017-02-16 05:39] LABS: Basophils # 0.1 10*3/uL (0.0-0.2); Basophils % 0.6 % (0.0-0.8); Eosinophils # 0.4 10*3/uL (0.0-0.87); Eosinophils % 4.5 % (0.00-10.9); Hematocrit 27.4 VOL% (42.0-52.0); Hemoglobin 9.6 GM/DL (14.0-18.0); Immature Granulocytes % 0.9 %; Immature Granulocytes Absolute 0.08 #; Lymphocytes # 0.5 10*3/uL (1.4-4.0); Lymphocytes % 5.7 % (21.2-54.2); Mean Corpuscular Hemoglobin 30 PG (27-34); Mean Corpuscular Volume 86.4 FL (87-102); Mean Platelet Volume 9.5 FL (9.6-12.0); Monocytes # 0.7 10*3/uL (0.11-0.8); Monocytes % 7.7 % (1.7-12.7); Neutrophils # 6.9 10*3/uL (1.4-7.4); Neutrophils % 80.6 % (38.7-73.9); Platelet Count 173 T/CUMM (130-400); Red Blood Count 3.17 MC/CUMM (3.8-5.5); Red Cell Distribution Width 22.8 % (9.3-17.3); White Blood Count 8.6 T/CUMM (4-12)
[2017-02-16 05:45] LABS: INR 1.6; PT Patient Result 17.1 SECS
[2017-02-16 06:05] LABS: Hypochromasia 1+; Microcytosis 1+; Polychromasia Slight; Target Cells Few
[2017-02-16 06:06] LABS: Platelet Estimate Adequate
[2017-02-16 06:44] LABS: Albumin 2.3 G/DL (3.4-5.0); Calcium 8.6 MG/DL (8.5-10.1); Osmolality,Calculated 273.4 MOS/KG (273-304); Potassium 4.5 MMOL/L (3.5-5.1); Total Protein 6.4 G/DL (6.4-8.3)
[2017-02-16 06:50] LABS: Bilirubin,Total 22.7 MG/DL (0.2-1.0)
--- NOTE | 2017-02-16 08:48 | ECHO Report ---
James Millan Exam Date: 02/16/2017 07:55 Referring Physician: Technologist: Age: 57 Ht (in): Wt (lb): Gender: M Exam Location: [facility] Echo Indications: BP: / HR: Rhythm: Sinus Technical Quality: average IMPRESSIONS Small left ventricle severe hypertrophy and ejection fraction in excess of 70% High-grade diastolic dysfunction most likely grade 3 restrictive physiology Biatrial enlargement Mild to moderate pulmonary hypertension estimated at 49 mmHg plus the right atrial pressure Calcific degenerative aortic valvular disease with no stenosis or insufficiency Mitral annular calcification with no mitral stenosis or significant regurgitation MEASUREMENTS (Male / Female) Normal Values 2D ECHO LV Diastolic Diameter PLAX 4.4 cm 4.2 - 5.9 / 3.9 - 5.3 cm LV Systolic Diameter PLAX 3.0 cm LV Fractional Shortening PLAX 30.2 % IVS Diastolic Thickness 2.4 cm 0.6 - 1.0 / 0.6 - 0.9 cm LVPW Diastolic Thickness 2.0 cm 0.6 - 1.0 / 0.6 - 0.9 cm RV Internal Dim ED PLAX 3.1 cm Aortic Root Diameter 3.7 cm LA Systolic Diameter LX 4.7 cm 3.0 - 4.0 / 2.7 - 3.8 cm DOPPLER TR Peak Velocity 350.0 cm/s TR Peak Gradient 49.0 mmHg FINDINGS Left Ventricle Overall ejection fraction is greater than 70%. The ventricle is very small. There is no regional wall motion abnormality. There is severe concentric left ventricular hypertrophy and mild increase in echogenicity of the tissue characteristics of the left ventricle. Diastolic parameters appear to be most consistent with grade 3 diastolic dysfunction or restrictive physiology Right Ventricle Right ventricle is slightly hypertrophied function is normal. Right Atrium Enlarged Left Atrium Enlarged Mitral Valve There is moderate mitral annular calcification there is no significant regurgitation and no demonstrable stenosis Aortic Valve Aortic valve is calcified there is a prominent calcific valve tip in the valve leaflet in the left coronary cusp. Tricuspid Valve The tricuspid valve is normal there is moderate tricuspid regurgitation with a peak velocity of 3.5 m/s corresponds to right ventricular systolic pressure 49 mmHg plus right atrial pressure Pulmonic Valve Pulmonic valve is normal Pericardium Precordium is normal Aorta Visualized portion of thoracic aorta is normal Claudia Giles (Electronically Signed) Final Date: 16 February 2017 08:47
[2017-02-16] MEDS ORDERED: HYDROmorphone 2 MG/1 ML VIAL IV PRN (09:13)
[2017-02-16] MEDS: CALCIUM ACETATE 667 MG CAPSULE PO SCH ×3 (09:15→20:02)
[2017-02-16] MEDS ORDERED: fentaNYL 100 MCG/2 ML VIAL ONE ×2 (09:40→13:53)
[2017-02-16] MEDS ORDERED: PROPOFOL 200 MG/20 ML VIAL IV ONE (10:11)
[2017-02-16] MEDS ORDERED: ONDANSETRON 4 MG/2 ML VIAL ONE (10:11)
[2017-02-16] MEDS ORDERED: PHENYLEPHRINE 1 MG/10 ML SYRINGE IV ONE (10:11)
[2017-02-16] MEDS ORDERED: SUCCINYLCHOLINE 200 MG/10 ML VIAL ONE (10:11)
[2017-02-16] MEDS ORDERED: LIDOCAINE 2% 5 ML VIAL ONE (10:11)
--- NOTE | 2017-02-16 10:49 | Operative Note ---
Date of procedure: 02/16/17 Pre-op diagnosis: Obstructive jaundice with suspected pancreatic cancer Procedure: Endoscopic retrograde cholangiopancreatography 57-year-old gentleman with obstructive jaundice and abnormal CT suspicious for pancreatic cancer now for ERCP to attempt biliary drainage. Informed consent was obtained the patient He was sedated with general endotracheal intubation per anesthesia protocol. Patient was placed in a prone position the Olympus duodenum scope surgical under blind vision into the oropharynx and advanced into the proximal esophagus. Scope was advanced under direct vision to the esophagus stomach which essentially were normal. Pylorus was normal. On entering the duodenum there is a large necrotic appearing mass occupying the entire second portion of the duodenum. Despite repositioning and multiple attempts at identifying the ampulla the mass precludes further identification. Biopsies were obtained and the procedure was terminated. Patient tolerated procedure well his discharge recovery in good condition Postop diagnosis: 1. Duodenal mass suspicious for pancreatic cancer with obliteration of identifying meyer for identification of the ampulla making it impossible to permit access for biliary drainage. Will follow up biopsies when available and will consult interventional radiology for drainage procedure, I have spoken with Dr. Kishor Zhu. Continue IV antibiotics. Following biliary drainage may need to consider gastro-jejunal bypass procedure for palliation as well. Anesthesia: GETA Surgeon / Physician: Peter Cardenas Estimated blood loss: none Specimens: other (Duodenal mass) Condition: stable Disposition: post procedure unit Results - Labs CBC & BMP: 02/16/17 05:25 02/16/17 05:25 Discharge Plan - Discharge Medications No Action Labetalol Tab [Trandate Tab] 200 mg PO BID Calcium Acetate 2,668 mg PO TID Cinacalcet HCl [Sensipar] 90 mg PO DAILY NIFEdipine [Nifedipine ER] 60 mg PO DAILY - Follow Up or Referral - Forms/Instructions
--- NOTE | 2017-02-16 11:32 | Hospitalist Progress Note ---
Assessment and Plan (1) Obstructive jaundice Status: Acute Assessment and plan: 1)jaundice- obstructive, to pancreatic mass seen and biopsied at ERCP this morning. Dr Zhu to do drainage procedure as Dr Cardenas could not place stent at ERCP 2)afib- chronic, not anticoagulated. Consider whether he needs anticoagulation once anemia and procedures resolve. I think if he has pancreatic cancer and is facing palliation for this antibcoagulation would not be helpful. 3)anemia- no active bleeding. transfuse today. 4)ESRD on HD 5)constipation- lactulose. Current Visit: Yes (2) Pancreatic mass Status: Acute Current Visit: Yes (3) End stage renal disease Status: Chronic Current Visit: Yes (4) Hypertension Status: Chronic Current Visit: Yes Qualifiers: Hypertension type: essential hypertension Qualified Code(s): I10 - Essential (primary) hypertension Hospitalist: Subjective Interval history: Mr Millan reports that his pain med works well for about an hour, then the pain returns before he can have more meds. ERCP this morning after I saw him showed pancreatic mass with obstruction of ampulla- he has consulted IR for drainage procedure. Biopsies taken. Exam - Constitutional Vitals: Period Temp Pulse Resp BP Sys/Watson Pulse Ox Last 24 Hr 96.8 F-98.7 F 87-108 18-20 117-162/62-98 91-100 General appearance: normal weight, no acute distress - Eye Eye exam: Present: EOMI. Absent: scleral icterus - Respiratory Respiratory exam: Present: clear to auscultation bilaterally - Cardiovascular Cardiovascular exam: Present: regular rate and rhythm - GI/Abdominal GI/Abdominal exam: Present: normal bowel sounds, soft. Absent: tenderness - Extremities Exam Extremities exam: Absent: edema - Neurological Exam Neurological exam: Present: alert, oriented X3 - Skin Skin exam: Present: warm, dry Results - Labs CBC & BMP: 02/16/17 05:25 02/16/17 05:25 Lab Results: I have reviewed the past 24 hour labs
--- NOTE | 2017-02-16 12:29 | Cardiology Progress Note ---
Assessment and Plan (1) Paroxysmal atrial fibrillation Status: Chronic Assessment and plan: This patient has experienced atrial fibrillation in the past and he is currently in atrial fibrillation. Continue AV domenica blockade agents resume anticoagulation once the procedure is needed. This will be high risk for the patient particularly if he gets therapy for his presumed malignancy. Current Visit: Yes (2) Coronary artery disease Status: Acute Current Visit: Yes (3) Dyslipidemia Status: Chronic Current Visit: Yes (4) Obstructive jaundice Status: Acute Current Visit: Yes (5) Pancreatic mass Status: Acute Current Visit: Yes (6) End stage renal disease Status: Chronic Current Visit: Yes (7) Hypertension Status: Chronic Current Visit: Yes Qualifiers: Hypertension type: essential hypertension Qualified Code(s): I10 - Essential (primary) hypertension Cardiology - PN: Subj Interval history: Patient was seen after endoscopy and biopsies are pending. Plans for percutaneous drainage of the biliary system were noted. The patient has no complaints at this time. He continues not to be hungry and has abdominal pain no syncope no palpitations his heart rate is well controlled he remains in atrial fibrillation. We are holding anticoagulation until no procedures are needed. Exam (Progress Note) - Constitutional Vitals: Period Temp Pulse Resp BP Sys/Watson Pulse Ox Last 24 Hr 96.6 F-98.7 F 86-108 15-21 117-162/62-98 91-100 General appearance: normal weight - Respiratory Respiratory exam: Present: clear to auscultation bilaterally - Cardiovascular Cardiovascular exam: Present: irregular rhythm (Rates about 80) - GI/Abdominal GI/Abdominal exam: Present: normal bowel sounds, other (Diffusely tender particularly the right upper) - Neurological Exam Neurological exam: Present: alert, oriented X3 Result/EKG - Labs CBC & BMP: 02/16/17 05:25 02/16/17 05:25 Labs: Laboratory Results - last 24 hr 02/15/17 02/15/17 02/15/17 08:35 13:39 13:39 WBC 6.4 RBC 2.34 L Hgb 7.0 L Hct 19.9 L MCV 85.0 L MCH 30 MCHC 35.2 RDW 25.2 H Plt Count 164 MPV 9.4 L Neut % (Auto) 74.2 H Lymph % (Auto) 9.5 L [place] % (Auto) 7.2 Eos % (Auto) 8.0 Baso % (Auto) 0.5 Neut # (Auto) 4.8 Lymph # (Auto) 0.6 L [place] # (Auto) 0.5 Eos # (Auto) 0.5 Baso # (Auto) 0.0 Immature Gran % 0.6 Nucleated RBC % 0.0 Immature Gran # 0.04 Nucleated RBCs # 0.00 Platelet Estimate Immature Plt Fraction 0.0 Polychromasia Hypochromasia Microcytosis Target Cells INR 1.7 PT Patient/Control Mix 18.1 Sodium Potassium Chloride Carbon Dioxide Anion Gap BUN Creatinine GFR Calculation BUN/Creatinine Ratio Glucose Calculated Osmolality Calcium Total Bilirubin AST ALT Alkaline Phosphatase Total Protein Albumin Globulin Albumin/Globulin Ratio Blood Type B POSITIVE Antibody Screen Negative Crossmatch See Detail 02/16/17 02/16/17 02/16/17 05:25 05:25 05:25 WBC 8.6 D RBC 3.17 L D Hgb 9.6 L D Hct 27.4 L MCV 86.4 L MCH 30 MCHC 35.0 RDW 22.8 H Plt Count 173 MPV 9.5 L Neut % (Auto) 80.6 H Lymph % (Auto) 5.7 L [place] % (Auto) 7.7 Eos % (Auto) 4.5 Baso % (Auto) 0.6 Neut # (Auto) 6.9 Lymph # (Auto) 0.5 L [place] # (Auto) 0.7 Eos # (Auto) 0.4 Baso # (Auto) 0.1 Immature Gran % 0.9 Nucleated RBC % 0.0 Immature Gran # 0.08 Nucleated RBCs # 0.00 Platelet Estimate Adequate Immature Plt Fraction 0.0 Polychromasia Slight Hypochromasia 1+ Microcytosis 1+ Target Cells Few INR 1.6 PT Patient/Control Mix 17.1 Sodium 133 L Potassium 4.5 Chloride 95 L Carbon Dioxide 30 Anion Gap 12.5 BUN 36 H D Creatinine 7.80 H GFR Calculation 9 BUN/Creatinine Ratio 4.00 L Glucose 102 Calculated Osmolality 273.4 Calcium 8.6 Total Bilirubin 22.70 H* AST 111 H ALT 84 H Alkaline Phosphatase 1104 H Total Protein 6.4 Albumin 2.3 L Globulin 4.1 H Albumin/Globulin Ratio 0.5 L Blood Type Antibody Screen Crossmatch
--- NOTE | 2017-02-16 12:58 | Anesthesia Post-Op ---
Anesthesia Post OP - Post Ansesthetic Evaluation Patient seen in post op: Yes Resp: within normal limits CV: within normal limits Mental: within normal limits Temp: within normal limits [id number]: within normal limits Nausea and Vomiting: within normal limits Pain: within normal limits
[2017-02-16] MEDS: LABETALOL 200 MG TABLET PO SCH ×2 (13:05→20:02)
[2017-02-16] MEDS: DOCUSATE SODIUM 100 MG CAPSULE PO SCH ×2 (13:05→20:02)
[2017-02-16] MEDS: LEVOFLOXACIN INJ 250 MG in PREMIX 1 EACH IV SCH (13:05)
[2017-02-16] MEDS ORDERED: MIDAZOLAM 2 MG/2 ML VIAL IV ONE (13:30)
[2017-02-16] MEDS ORDERED: fentaNYL 100 MCG/2 ML VIAL IV ONE (13:30)
[2017-02-16] MEDS ORDERED: SODIUM CHLORIDE 0.45% 1,000 ML IV SCH (13:30)
--- NOTE | 2017-02-16 13:45 | IR History and Physical Update ---
IR Pre-Procedure - History and Physical H&P was reviewed, the patient examined and there: are no changes in the patients condition since last H&P was completed. Reason for procedure:: biliary obstruction, duodenal mass - Dictation Physical: refer to H&P completed by admitting physician - Physical Exam Vital Signs: Last Vital Signs Temp 96.6 F L 02/16/17 11:56 Pulse 86 02/16/17 11:56 Resp 20 02/16/17 11:56 BP 131/79 02/16/17 11:56 Pulse Ox 96 02/16/17 11:56 Mental Status: alert and oriented Heart: regular rate and rhythm Lung: clear to auscultation Abdomen: within normal limits - Sedation IR anesthesia plan for sedation: moderate ASA Class: III Airway Assessment: Class III: Soft palate, base of uvula visible - Risks Risks: Procedures explained. Risks discussed include, but not limited to, the following:[bleeding, infection, injury to adjacent structures, sepsis ] All questions answered. The following alternatives were discussed:[none] Risks and benefits discussed with: patient, spouse Consent obtained from: patient, spouse Assessment and Plan - Time spent with patient Time spent with patient: Less than 30 minutes (1) Obstructive jaundice Problem details: ERCP unsuccessful due to large duodenal necrotic mass Status : Acute Assessment and plan: plan for PTC today with hope to place int/ext biliary drain may need metal stent at some point if planned treatment is palliative Current Visit: Yes
[2017-02-16] MEDS ORDERED: MIDAZOLAM 2 MG/2 ML VIAL ONE (13:53)
[2017-02-16] MEDS: ONDANSETRON 4 MG/2 ML VIAL IV PRN (15:23)
--- NOTE | 2017-02-16 16:08 | Post Interventional Procedure ---
Pre-op diagnosis: duodenal mass and biliary obstruction Post-op diagnosis: same Procedure: percutaneous cholangiogram and internal/external biliary drain placement Contrast: 10 ml Omni 350 Flouroscopy: 18.7 min Radiologist: Kishor Zhu Anesthesia: conscious sedation Medications: 1 mg IV Versend 100mcg IV fentanyl Specimens: none sent Estimated blood loss: none Complications: none Condition: stable Description/Findings: PTC shows markedly dilated biliary ducts the distal CBD shows a blunt ending most compatible with extrinsic compression from the known duodenal mass This stricture was traversed and an 8 FR internal/external biliary drain was placed without difficulty The patient tolerated the procedure well Assessment and Plan - Time spent with patient Time spent with patient: Greater than 30 minutes (1) Obstructive jaundice Problem details: ERCP unsuccessful due to large duodenal necrotic mass Status : Acute Assessment and plan: plan for PTC today with hope to place int/ext biliary drain may need metal stent at some point if planned treatment is palliative post procedure update: The int/ext drain is in place and after a few days (or weeks), we can reassess the care plan Given the extent of disease, the distal CBD obstruction could be stented if needed for palliative care measures. Current Visit: Yes
--- NOTE | 2017-02-16 16:24 | Interventional Radiology Rpt ---
IR intro in/ext biliary stent Percutaneous transhepatic cholangiography (PTC) Internal/external biliary drainage catheter placement with fluoroscopic guidance Clinical Information: 57-year-old man with biliary obstruction due to a. Attempt at ERCP with biliary drainage was unsuccessful. Appears necrotic on endoscopy and biopsies have been performed. Physician[s]: Dr. Zhu Total number of images for the procedure: 44 Procedure: The patient was advised of the benefits, risks, and alternatives of the procedure and informed consent was obtained. A time out was performed with verification of the patient's name, MRN, site of procedure, and type of procedure to be performed. The patient was positioned in the supine position on the angiographic table. The site was prepped and draped in the usual sterile fashion. Moderate conscious sedation was administered throughout the procedure for 45 minutes, during which the operating physician monitored the patient. Please see flow sheet in the [facility] system for details. A non categorical preschool teacher radiograph reveals no relevant abnormality. The soft tissues overlying the anticipated right upper quadrant puncture site were anesthetized with lidocaine. A right hepatic duct was accessed with a 20 gauge Chiba needle under fluoroscopic and ultrasound guidance. A percutaneous trans-hepatic cholangiogram demonstrates central access into an anterior duct which is markedly dilated. Therefore, a second needle was passed under fluoroscopic guidance into a more posterior and peripheral duct. A 0.018" [place] wire was advanced into the central biliary tree and the needle was exchanged for a Merit introducer / dilator access set. The inner dilator and the [place] wire were removed. Repeat cholangiography demonstrates markedly dilated common bile duct with no significant spontaneous passage of contrast into the duodenum. Of note, there is marked dilatation of the common bile duct and brought distal obstruction likely due to the known large duodenal mass. Using a Kumpe catheter, the Glidewire was negotiated carefully through the common bile duct into the distal duodenum. Injection of contrast through the Kumpe catheter demonstrates normal appearance of the duodenal. The Kumpe catheter was exchanged over a superstiff Amplatz wire for an 8 Citizen Of [place] Cook biliary drainage catheter. The catheter pigtail was unable to be performed, likely due to anatomy and positioning within the proximal duodenum. However, the retention wire of the catheter was left under tension and locked in position. Injection of contrast confirmed adequate placement of the catheter with the distal catheter tip in the duodenum. The catheter was sutured to the skin with Percu-Stay device and placed to gravity drainage. A sterile dressing was applied to the catheter insertion site. The patient tolerated the procedure well and was returned to the inpatient room in in stable condition. EBL: < 5 mL. Complications: None. Conclusion: 1. Percutaneous transhepatic cholangiography demonstrating markedly dilated intrahepatic and extrahepatic bile ducts with abrupt termination of contrast flow at the distal CBD likely due to the known duodenal mass. 2. Successful placement of an 8 Citizen [place] internal/external biliary drainage catheter. When a care plan has been established, consideration for catheter exchange in 8-10 weeks or catheter removal with stent placement could be considered. PROCEDURE INTERPRETED AT [facility] DEPARTMENT OF RADIOLOGY Final Report Signed by: Kishor Zhu
[2017-02-16] MEDS: CINACALCET 30 MG TABLET PO SCH (17:24)
[2017-02-16] MEDS: PANTOPRAZOLE 40 MG TABLET PO SCH (17:25)
--- NOTE | 2017-02-16 17:48 | Nephrology Progress Note ---
Nephrology - PN: Subj Interval history: Patient is resting comfortably no acute changes. No shortness of breath, no abdominal pain. Plan for ERCP sometime this week. Will continue with current medical management for this patient. 02/15/2017. Patient states he had some abdominal discomfort this morning. Scheduled to have an ERCP done tomorrow. No fevers or chills. At this time dialysis today. 02/16/2017. The patient is now status post drainage of common bile duct due to pancreatic mass. Patient is resting comfortably. No fevers or chills. Exam (PN)-Nephrology - Vital Signs Vital signs: Period Temp Pulse Resp BP Sys/Watson Pulse Ox Last 24 Hr 96.6 F-98.7 F 86-108 15-24 115-242/62-117 91-100 - General Appearance General appearance: well-developed, well-nourished EENT: ATNC Neck: supple Respiratory: clear Cardiology: no edema, regular rate, regular rhythm Gastrointestinal: normoactive bowel sounds, no tenderness Neurologic: alert and oriented x3, CN 3-12 intact Musculoskeletal: no deformities, no clubbing Psychiatric: mood/affect appropriate, cooperative - Lab 02/16/17 05:25 02/16/17 05:25 Most recent lab results Calcium 8.6 MG/DL (8.5-10.1) 02/16/17 05:25 Assessment and Plan (1) Obstructive jaundice Problem details: ERCP unsuccessful due to large duodenal necrotic mass Status : Acute Current Visit: Yes (2) Pancreatic mass Status: Acute Assessment and plan: CT of the abdomen schedule Current Visit: Yes (3) End stage renal disease Status: Chronic Assessment and plan: Continue with schedule hemodialysis for this patient. Current Visit: Yes (4) Hypertension Status: Chronic Current Visit: Yes Qualifiers: Hypertension type: essential hypertension Qualified Code(s): I10 - Essential (primary) hypertension
[2017-02-17] MEDS ORDERED: SODIUM CHLORIDE 0.9% 500 ML IV ONE (05:42)
[2017-02-17] MEDS ORDERED: SODIUM CHLORIDE 0.9% 250 ML IV ONE (06:34)
[2017-02-17] MEDS: CALCIUM ACETATE 667 MG CAPSULE PO SCH ×3 (08:44→21:15)
[2017-02-17] MEDS: DOCUSATE SODIUM 100 MG CAPSULE PO SCH ×2 (08:45→21:16)
[2017-02-17] MEDS: LABETALOL 200 MG TABLET PO SCH ×2 (08:45→21:18)
[2017-02-17] MEDS: CINACALCET 30 MG TABLET PO SCH (08:45)
[2017-02-17] MEDS: PANTOPRAZOLE 40 MG TABLET PO SCH (08:45)
[2017-02-17] MEDS: BISACODYL 5 MG TABLET PO PRN (08:45)
--- NOTE | 2017-02-17 09:39 | Gastrointestinal Progress Note ---
<Jacey Conklin - Last Filed: 02/17/17 09:35> Assessment and Plan (1) Pancreatic mass Status: Acute Assessment and plan: 02/17-ERCP findings noted on yesterday. PTC placement also negative yesterday. We will recheck CMP today. Plan an addendum to followed by Dr. Cardenas 02/15-no changes at this time. We will plan to postpone ERCP tomorrow to allow patient to dialyze today. Continue to monitor this time. Plan an addendum to followed by Dr. Cardenas. 02/12-3-4 week history of abdominal pain, with nausea, vomiting and diarrhea. Admitted with elevated bilirubin at [address] of abdomen of 4.2 cm pancreatic mass as well as 27 mm mass in left lobe of liver suspicious for metastatic lesion. CA-19-9 elevated at 409. Father plan an addendum to followed by Dr. Cardenas. Current Visit: Yes Gastroenterology - PN: Subj Interval history: CC: Suspected pancreatic cancer Patient is seen awake alert sitting up in bed. States he had a fairly restful night. He denies any abdominal pain, nausea or vomiting. He has a clear liquid diet at this time however he does not have very much of an appetite. ERCP on yesterday noted showed duodenal mass with obliteration of identifying marked for the ampulla with inability to access biliary drainage interventional radiology was consulted for PTC placement. Dr. Zhu consulted and placed biliary drain without difficulty on yesterday. No repeat labs noted for today. Abdomen is soft, nontender. ROS: Denies shortness of breath or chest Exam (Progress Note) - Constitutional Vitals: Period Temp Pulse Resp BP Sys/Watson Pulse Ox Last 24 Hr 96.5 F-99.5 F 85-118 15-24 62-242/40-117 91-100 General appearance: normal weight, no acute distress - Head Head exam: Present: normal inspection, normocephalic - Eye Eye exam: Present: scleral icterus, other (Lids and conjunctivae are unremarkable) - ENT ENT exam: Present: normal exam, normal oropharynx - Neck Neck exam: Present: normal inspection - Respiratory Respiratory exam: Present: clear to auscultation bilaterally. Absent: rales, rhonchi, wheezes - Cardiovascular Cardiovascular exam: Present: regular rate and rhythm. Absent: diastolic murmur , JVD, systolic murmur - GI/Abdominal GI/Abdominal exam: Present: normal bowel sounds, soft. Absent: ascites, distended, mass, organomegaly, tenderness - Extremities Exam Extremities exam: Present: normal inspection, full ROM - Back Exam Back exam: Present: normal inspection - Neurological Exam Neurological exam: Present: alert, oriented X3 - Psychiatric Psychiatric exam: Present: normal affect, normal mood - Skin Skin exam: Present: normal color, warm, dry Results - Labs CBC & BMP: 02/16/17 05:25 02/16/17 05:25 Lab Results: I have reviewed the past 24 hour labs <Peter Cardenas - Last Filed: 02/17/17 22:11> Exam (Progress Note) - Constitutional Vitals: Period Temp Pulse Resp BP Sys/Watson Pulse Ox Last 24 Hr 96.5 F-99.5 F 80-118 16-22 62-108/40-69 91-98 Results - Labs CBC & BMP: 02/16/17 05:25 02/17/17 09:48
[2017-02-17 10:49] LABS: Calcium 7.9 MG/DL (8.5-10.1); Osmolality,Calculated 284.2 MOS/KG (273-304); Potassium 5.7 MMOL/L (3.5-5.1); Total Protein 5.6 G/DL (6.4-8.3)
--- NOTE | 2017-02-17 11:24 | Pathology Report from [facility] ---
[facility] ACCESSION # : [id number] PATIENT NAME : Savage Durán ORDERING DR : RIGO RON MD CLINICAL HX: Pancreatic carcinoma POST-OP DX: Duodenal mass SPECIMEN INFO: Duodenal mass biopsy GROSS DESCRIPTION: Received in formalin labeled SAVAGE DURÁN consists of two hyperemic pino mucosal tissue fragments measuring together 0.5 x 1 cm submitted in one cassette. DIAGNOSIS FOR SAVAGE DURÁN: DUODENAL BIOPSIES: Invasive adenocarcinoma, poorly- differentiated, c/w pancreatic origin. Tumor undermines and ulcerates the overlying duodenal mucosa with areas of intact villous architecture showing no adenomatous change in the duodenal mucosa. COLLECTED DATE: 02/16/2017 [facility] REPORT DATE: 02/17/2017 ELECTRONICALLY SIGNED BY: Sergio Byrnes M.D. 02/17/2017 - 9:23:43 [facility]
--- NOTE | 2017-02-17 12:08 | Hospitalist Progress Note ---
Assessment and Plan (1) Obstructive jaundice Problem details: ERCP unsuccessful due to large duodenal necrotic mass Status : Acute Assessment and plan: 1)jaundice- obstructive, due to pancreatic mass seen and biopsied at ERCP. Dr Zhu placed biliary drain as Dr Cardenas could not place stent at ERCP. 2)afib- chronic, not anticoagulated. Consider whether he needs anticoagulation once anemia and procedures resolve. I think if he has pancreatic cancer and is facing palliation for this anticoagulation would not be helpful. 3)anemia- no active bleeding. transfuse today. 4)ESRD on HD 5)constipation- lactulose. 6)pancreatic mass- await path report, likely cancer. Current Visit: Yes (2) Pancreatic mass Status: Acute Current Visit: Yes (3) End stage renal disease Status: Chronic Current Visit: Yes (4) Hypertension Status: Chronic Current Visit: Yes Qualifiers: Hypertension type: essential hypertension Qualified Code(s): I10 - Essential (primary) hypertension Hospitalist: Subjective Interval history: Mr Millan is feeling better today with less pain. His BP was low this morning so his labetolol was held but he was given procardia. He denies dizziness or shortness of breath or other problems. He is waiting for the pathology results form his biopsy. Exam - Constitutional Vitals: Period Temp Pulse Resp BP Sys/Watson Pulse Ox Last 24 Hr 96.5 F-99.5 F 85-118 18-24 62-242/40-117 91-100 General appearance: normal weight, no acute distress - Eye Eye exam: Present: EOMI. Absent: scleral icterus - Respiratory Respiratory exam: Present: clear to auscultation bilaterally - Cardiovascular Cardiovascular exam: Present: regular rate and rhythm - GI/Abdominal GI/Abdominal exam: Present: normal bowel sounds, tenderness - Extremities Exam Extremities exam: Absent: edema - Neurological Exam Neurological exam: Present: alert, oriented X3 - Skin Skin exam: Present: warm, dry Results - Labs CBC & BMP: 02/16/17 05:25 02/17/17 09:48 Lab Results: I have reviewed the past 24 hour labs
--- NOTE | 2017-02-17 14:15 | General Surgery Consult Note ---
Assessment and Plan (1) Pancreatic mass Status: Acute Assessment and plan: Patient has a pancreatic mass with obstructive jaundice and now confirmed invasive adeno carcinoma with pancreatic origin from a biopsy obtained from the duodenum submitted by Dr. Cardenas during ERCP. there is evidence of liver metastasis as well. Dr. Guaman will follow with surgical recommendations. Current Visit: Yes History of Present Illness Chief complaint: Obstructive jaundice History of present illness: Mr. Millan is a 57 year old male with past medical history of end-stage renal disease, paroxysmal atrial fibrillation, and coronary artery disease who presented with obstructive jaundice and now has identified invasive adenocarcinoma from duodenal biopsies with pancreatic origin and known liver lesion suspicious for associated metastasis for whom general surgery has been consulted. The patient reports presently 50 pound weight loss in the past 3-4 months and significant anorexia in the past 2-3 weeks. He presented with scleral icterus noted at his dialysis appointment and significantly elevated bilirubin. ERCP was performed to attempt biliary drainage which was unsuccessful and interventional radiology was consulted to place biliary stent which was successful; percutaneous transhepatic cholangiography demonstrated markedly dilated intrahepatic and extra hepatic bile ducts with abrupt termination of contrast flow at the distal common bile duct suspected associated with the known duodenal mass. CT scan on admission also indicated 27 mm liver mass in the lateral segment of the left lobe suspicious for metastases. His bilirubin continues to rise 17 on admission and now increased to 22. Home Medications Medication Instructions Recorded Confirmed Type Calcium Acetate 2,668 mg PO TID 02/11/17 02/11/17 History Cinacalcet HCl [Sensipar] 90 mg PO DAILY 02/11/17 02/11/17 History Labetalol Tab [Trandate Tab] 200 mg PO BID 02/11/17 02/11/17 History NIFEdipine [Nifedipine ER] 60 mg PO DAILY 02/11/17 02/11/17 History Allergies Allergy/AdvReac Type Severity Reaction Status Date / Time No Known Allergies Allergy Verified 02/11/17 17:03 Medical,Surgical,& Family Hx - Medical History Cardio: History of: Cardiac Dysrhythmia (Paroxysmal atrial fibrillation), CAD ( PCI with HARSHA of the mid RCA in 2010), Hypertension Neurology: No history of: Seizures Renal: History of: Dialysis (Renal failure secondary to uncontrolled hypertension) - Surgical History Cardiac Surgeries: Sugical HX of: Vascular Access Devices Reproductive Surgeries: Surgical HX of;: Genitourinary Surgery (graft for dialysis) - Family History Family History: Reports;: Family Cancer (Mother), Family Hypertension (Both parents) - Social History Smoking Status: Never smoker Frequency of Alcohol Use: None Type of Drug Use: None Exam - Constitutional Vitals: Period Temp Pulse Resp BP Sys/Watson Pulse Ox Last 24 Hr 96.5 F-99.5 F 85-118 18-24 62-242/40-117 91-100 Results - Labs CBC & BMP: 02/16/17 05:25 02/17/17 09:48 Labs: Labs since admission have been reviewed - Diagnostic Findings Procedure: CT Abdomen and Pelvis: image reviewed by me, report reviewed by me
--- NOTE | 2017-02-17 15:04 | Dialysis Note ---
Dialysis Note - Dialysis Note Mr. Millan is seen during his hemodialysis. He is resting and is stable. His biliary drain is draining significant volumes of bile.
[2017-02-18] MEDS: ZALEPLON 5 MG CAPSULE PO PRN (01:41)
--- NOTE | 2017-02-18 07:22 | Event Note ---
This patient is admitted with an obstructing pancreatic cancer that has metastatic disease in the liver. An internal/external biliary drain was placed by Dr. Zhu yesterday. The patient is barely able to tolerate liquids because of the gastrointestinal obstruction portion from his mass. I have been consulted for palliative bypass. I discussed this in detail with the patient and offered him continuation as he is doing since his life expectancy is so short which would basically mean he would only be able to take liquids for comfort. The alternative would be that we do a gastrojejunostomy and he should be able to eat if he feels well and his stomach empties well after the operation. He would prefer to live out his days being able to eat regular food and enjoys this and I think this is a reasonable decision. He understands that in no way whatsoever with surgery address his cancer or treat his cancer in any way. I have discussed the risks, benefits, and alternatives of gastrojejunostomy with the patient, and the expected outcomes have been reviewed. He would like to proceed with the operation today and I will schedule this for sometime early this afternoon.
--- NOTE | 2017-02-18 08:08 | Oncology Consult Note ---
History of Present Illness Chief complaint: Obstructive jaundice/pancreatic cancer History of present illness: Mr. Durán is a 57 year old male who was recently found to have an elevated CA-19 -9 and has biopsy-proven pancreatic adenocarcinoma. He is also a renal patient and is on hemodialysis. He is profoundly ill. He has had a percutaneous drain placed in his biliary tract. He is also being scheduled for bypass surgery of the obstruction in his GI tract. His pathology [place] as follows[place] [facility] [place] [id number] PATIENT NAME : James Durán ORDERING DR : RIGO RON MD CLINICAL HX: Pancreatic carcinoma POST-OP DX: Duodenal mass SPECIMEN INFO: Duodenal mass biopsy GROSS DESCRIPTION: Received in formalin labeled JAMES DURÁN consists of two hyperemic pino mucosal tissue fragments measuring together 0.5 x 1 cm submitted in one cassette. DIAGNOSIS FOR JAMES DURÁN: DUODENAL BIOPSIES: Invasive adenocarcinoma, poorly- differentiated, c/w pancreatic origin. Tumor undermines and ulcerates the overlying duodenal mucosa with areas of intact villous architecture showing no adenomatous change in the duodenal mucosa. COLLECTED DATE: 02/16/2017 [facility] [place] DATE: 02/17/2017 ELECTRONICALLY SIGNED BY: Sergio Byrnes M.D. 02/17/2017 - 9:23:43 Home Medications Medication Instructions Recorded Confirmed Type Calcium Acetate 2,668 mg PO TID 02/11/17 02/11/17 History Cinacalcet HCl [Sensipar] 90 mg PO DAILY 02/11/17 02/11/17 History Labetalol Tab [Trandate Tab] 200 mg PO BID 02/11/17 02/11/17 History NIFEdipine [Nifedipine ER] 60 mg PO DAILY 02/11/17 02/11/17 History Allergies Allergy/AdvReac Type Severity Reaction Status Date / Time No Known Allergies Allergy Verified 02/11/17 17:03 Medical,Surgical,& Family Hx - Medical History Cardio: History of: Cardiac Dysrhythmia (Paroxysmal atrial fibrillation), CAD ( PCI with HARSHA of the mid RCA in 2010), Hypertension Neurology: No history of: Seizures Renal: History of: Dialysis (Renal failure secondary to uncontrolled hypertension) - Surgical History Cardiac Surgeries: Sugical HX of: Vascular Access Devices Reproductive Surgeries: Surgical HX of;: Genitourinary Surgery (graft for dialysis) - Family History Family History: Reports;: Family Cancer (Mother), Family Hypertension (Both parents) - Social History Smoking Status: Never smoker Frequency of Alcohol Use: None Type of Drug Use: None His review of systems is positive for: Eyes: Conjunctival icterus Pulmonary: No particular chest pain or dyspnea Cardiovascular: Irregular heartbeat GI: Anorexia, nausea and vomiting and jaundice. : The patient is on hemodialysis with chronic renal failure Musculoskeletal: Generalized muscle weakness Neurologic: No seizures, convulsions or paralysis Physical examination: General: The patient is chronically ill-appearing. Eyes: He has conjunctival icterus with normal lids. ENT: His oral mucosa and pharynx are normal. His hearing appears normal. Neck: His trachea is midline and he has no neck masses. Pulmonary: His chest moves symmetrically with respiration. There is no chest tenderness or chest deformity. Cardiovascular: Currently, his heart rhythm is regular without murmur, gallop or rub. I hear no carotid bruits. Abdomen: He is tender over the left upper quadrant and epigastric region. There is no ascites. I palpate no definite masses. Musculoskeletal: There is no focal muscle atrophy or bone or joint deformity. Neurologic: Cranial nerves II through XII are intact. There are no focal neurologic deficits. Nodes: I find no submandibular, cervical, supraclavicular or axillary adenopathy. Impression: Obstructive jaundice secondary to pancreatic carcinoma: The total bilirubin is 22.0. The alkaline phosphatase is markedly elevated at 1257. Unresectable pancreatic carcinoma: His CA-19-9 is 409.6 with a CEA level of 0.7 and an alpha-fetoprotein level of 2.0. End-stage renal disease on hemodialysis: Anemia of chronic disease: His hemoglobin is 9.6. His serum iron is 38 with a low iron binding capacity 133. I am not sure that I have anything to offer this patient in the way of palliative chemotherapy. I certainly do not plan to recommend chemotherapy at this point until his bilirubin has fallen and he has undergone bypass surgery so that he can eat. Most of the chemotherapy medications used in treating pancreatic cancer requiring normal renal function. He would better be served to go on hospice once he has undergone the bypass procedure. Thank you for consulting me. Home Medications Medication Instructions Recorded Confirmed Type Calcium Acetate 2,668 mg PO TID 02/11/17 02/11/17 History Cinacalcet HCl [Sensipar] 90 mg PO DAILY 02/11/17 02/11/17 History Labetalol Tab [Trandate Tab] 200 mg PO BID 02/11/17 02/11/17 History NIFEdipine [Nifedipine ER] 60 mg PO DAILY 02/11/17 02/11/17 History Allergies Allergy/AdvReac Type Severity Reaction Status Date / Time No Known Allergies Allergy Verified 02/11/17 17:03 Medical,Surgical,& Family Hx - Medical History Cardio: History of: Cardiac Dysrhythmia (Paroxysmal atrial fibrillation), CAD ( PCI with HARSHA of the mid RCA in 2010), Hypertension Neurology: No history of: Seizures Renal: History of: Dialysis (Renal failure secondary to uncontrolled hypertension) - Surgical History Cardiac Surgeries: Sugical HX of: Vascular Access Devices Reproductive Surgeries: Surgical HX of;: Genitourinary Surgery (graft for dialysis) - Family History Family History: Reports;: Family Cancer (Mother), Family Hypertension (Both parents) - Social History Smoking Status: Never smoker Frequency of Alcohol Use: None Type of Drug Use: None Exam - Constitutional Vitals: Period Temp Pulse Resp BP Sys/Watson Pulse Ox Last 24 Hr 96.5 F-99.3 F 80-110 16-22 88-128/55-81 93-96 Results - Labs CBC & BMP: 02/16/17 05:25 02/17/17 09:48
[2017-02-18] MEDS ORDERED: DIAZEPAM 5 MG TABLET PO ONE ×2 (08:25→08:58)
[2017-02-18] MEDS ORDERED: PANTOPRAZOLE 40 MG TABLET PO ONE (08:25)
[2017-02-18] MEDS ORDERED: LACTATED RINGERS 1,000 ML IV SCH (08:30)
[2017-02-18] MEDS ORDERED: SODIUM CHLORIDE 0.9% 1,000 ML IV SCH (09:00)
--- NOTE | 2017-02-18 09:08 | Gastrointestinal Progress Note ---
<Jacey Conklin - Last Filed: 02/18/17 09:05> Assessment and Plan (1) Pancreatic mass Status: Acute Assessment and plan: 02/18-plans noted for gastrojejunostomy today. Oncology consult noted as well as below. Plan an addendum to followed by Dr. Cardenas. 02/17-ERCP findings noted on yesterday. PTC placement also negative yesterday. We will recheck CMP today. Plan an addendum to followed by Dr. Cardenas 02/15-no changes at this time. We will plan to postpone ERCP tomorrow to allow patient to dialyze today. Continue to monitor this time. Plan an addendum to followed by Dr. Cardenas. 02/12-3-4 week history of abdominal pain, with nausea, vomiting and diarrhea. Admitted with elevated bilirubin at [address] of abdomen of 4.2 cm pancreatic mass as well as 27 mm mass in left lobe of liver suspicious for metastatic lesion. CA-19-9 elevated at 409. Father plan an addendum to followed by Dr. Cardenas. Current Visit: Yes Gastroenterology - PN: Subj Interval history: CC: Pancreatic mass Patient is seen, awake alert sitting up in bed. States he rested well last night. He is denying any abdominal pain, nausea or vomiting. Abdomen is soft, nontender. Dr. Guaman has consulted with patient and has discussed palliative bypass for his duodenal obstruction patient has requested to continue the "remainder of his life" being able to enjoy eating. Patient has elected to proceed with gastrojejunostomy today. Dr. Morales has consulted with patient as well and has discussed palliative chemotherapy however no plans to proceed with this noted at this time. ROS: Denies shortness of breath or chest pain Exam (Progress Note) - Constitutional Vitals: Period Temp Pulse Resp BP Sys/Watson Pulse Ox Last 24 Hr 96.5 F-99.3 F 80-110 16-22 88-128/55-81 93-96 General appearance: normal weight, no acute distress - Head Head exam: Present: normal inspection, normocephalic - Eye Eye exam: Present: scleral icterus, other (Lids and conjunctive are unremarkable ) - ENT ENT exam: Present: normal exam, normal oropharynx - Neck Neck exam: Present: normal inspection - Respiratory Respiratory exam: Present: clear to auscultation bilaterally. Absent: rales, rhonchi, wheezes - Cardiovascular Cardiovascular exam: Present: regular rate and rhythm. Absent: diastolic murmur , JVD, systolic murmur - GI/Abdominal GI/Abdominal exam: Present: normal bowel sounds, soft. Absent: ascites, distended, mass, organomegaly, tenderness - Extremities Exam Extremities exam: Present: normal inspection, full ROM - Back Exam Back exam: Present: normal inspection - Neurological Exam Neurological exam: Present: alert, oriented X3 - Psychiatric Psychiatric exam: Present: normal affect, normal mood - Skin Skin exam: Present: normal color, warm, dry Results - Labs CBC & BMP: 02/16/17 05:25 02/17/17 09:48 Lab Results: I have reviewed the past 24 hour labs <Peter Cardenas - Last Filed: 02/18/17 21:14> Exam (Progress Note) - Constitutional Vitals: Period Temp Pulse Resp BP Sys/Watson Pulse Ox Last 24 Hr 97.9 F-99.3 F 88-110 16-22 84-129/46-78 92-97 Results - Labs CBC & BMP: 02/18/17 08:52 02/18/17 08:52
[2017-02-18 09:29] LABS: Hemoglobin 8.9 GM/DL (14.0-18.0)
[2017-02-18] MEDS: LABETALOL 200 MG TABLET PO SCH ×2 (09:36→23:41)
--- NOTE | 2017-02-18 10:11 | XRay Report ---
XR chest 1V portable Indication: Respiratory preoperative evaluation. Comparison: 15 August 2014 Findings: The heart and mediastinum are stable in size and configuration. The pulmonary vascularity is increased with bilateral increased interstitial lung density. There is increasing bilateral pulmonary density more prominent on the left. No other lung infiltrates, effusions, pneumothorax or other abnormality is demonstrated. Impression: Findings suggest cardiac decompensation. Increasing pulmonary densities, could indicate infiltrate. PROCEDURE INTERPRETED AT [facility] DEPARTMENT OF RADIOLOGY Final Report Signed by: Dr. Dallas Hammond
--- NOTE | 2017-02-18 11:15 | Event Note ---
In light of the patient's situation and the oncology note that he is not a good candidate for palliative chemotherapy, the best plan for palliation may also include removal of the external biliary drain with placement of a metallic stent. This can be performed on an outpatient basis in 2 weeks to allow time for the bilirubin levels to normalize.
[2017-02-18] MEDS ORDERED: VANCOMYCIN 500 MG VIAL ONE (12:49)
[2017-02-18] MEDS ORDERED: ROCURONIUM 100 MG/10 ML VIAL IV ONE (13:04)
[2017-02-18] MEDS ORDERED: PHENYLEPHRINE 20 MG/250 ML PREMIX IV ONE (13:04)
[2017-02-18] MEDS ORDERED: SUCCINYLCHOLINE 200 MG/10 ML VIAL ONE (13:04)
[2017-02-18] MEDS ORDERED: PHENYLEPHRINE 1 MG/10 ML SYRINGE IV ONE (13:04)
[2017-02-18] MEDS ORDERED: PROPOFOL 200 MG/20 ML VIAL IV ONE (13:04)
[2017-02-18] MEDS ORDERED: SUGAMMADEX 200 MG/2 ML VIAL IV ONE (13:41)
--- NOTE | 2017-02-18 14:16 | Operative Note ---
Date of procedure: 02/18/17 Pre-op diagnosis: Gastric outlet obstruction secondary to metastatic pancreatic cancer Post-op diagnosis: same Procedure: Preoperative diagnosis Gastric outlet obstruction secondary to metastatic pancreatic cancer Postoperative diagnosis Same Procedures performed Laparotomy with gastrojejunostomy Ventral umbilical hernia repair primary Findings Metastatic disease was confirmed in the left lateral lobe of the liver. There is no peritoneal carcinomatosis. A [id number] stapled gastrojejunostomy was performed on the dependent portion of the greater curvature of the stomach. A 1 cm hernia defect was found at the umbilicus its contents were reduced and it was repaired with the fascial closure. Complications None apparent Specimen None Anesthesia GETA Blood loss Minimal Indications Gastric outlet obstruction secondary to metastatic pancreatic cancer. The risks , benefits, and alternatives of the operation were discussed with the patient in detail. The expected outcomes were reviewed. I reviewed the patient's case with the weatherization technician who is covering him Dr. Giles who felt that he was not too high risk for this palliative procedure. Description of procedure The patient was taken to the operating room and transferred to the operating table in the supine position. Pressure points were padded and SCDs placed lower extremities. General endotracheal anesthesia was administered. The abdomen was clipped with electric clippers and prepped chlorhexidine. It was then draped sterilely. Preoperative antibiotics were administered, and a timeout was performed. Midline laparotomy incision was made with a 10 blade scalpel and electrocautery was used to dissected into the abdominal cavity. There was a umbilical hernia present that had a piece of paracolic fat on the transverse colon and this was taken down. The hernia was reduced. The fascia was opened over this hernia. A self-retaining retractor was then placed in the greater curvature the stomach was identified. There was a metastatic focus in the liver about 2-3 cm in size in the left lateral segment consistent with CT scan finding from this admission. This was not biopsied. The ligament of Treitz was then identified and a limb of jejunum was pulled up to reach the stomach without tension. This was approximately 30 cm distal to ligament of Treitz. The bowel was aligned for a [id number]-[id number] anastomosis. Enterotomy and gastrotomy was made and an antimesenteric staple line was created forming a gastrojejunostomy with an 80 mm SHILPI stapler. The common enterotomy was closed with a TA 60 mm stapler. The anastomosis appeared patent and well perfused. The abdomen was closed in one layer with a #1 non-looped PDS suture and the hernia was repaired with a fascial closure. The skin incision was closed with skin clips and dressed with sterile dressing. The patient was awakened from anesthesia and transferred to recovery. Postoperative plan Advance diet as tolerated Anesthesia: BENITOA Surgeon / Physician: Artis Guaman Estimated blood loss: minimal Specimens: none sent Condition: stable Disposition: PACU Results - Labs CBC & BMP: 02/18/17 08:52 02/18/17 08:52 Discharge Plan - Discharge Medications No Action Labetalol Tab [Trandate Tab] 200 mg PO BID Calcium Acetate 2,668 mg PO TID Cinacalcet HCl [Sensipar] 90 mg PO DAILY NIFEdipine [Nifedipine ER] 60 mg PO DAILY - Follow Up or Referral - Forms/Instructions
--- NOTE | 2017-02-18 14:27 | Anesthesia Post-Op ---
Anesthesia Post OP - Post Ansesthetic Evaluation Patient seen in post op: Yes Resp: within normal limits CV: within normal limits Mental: within normal limits Temp: within normal limits [id number]: within normal limits Nausea and Vomiting: within normal limits Pain: within normal limits
[2017-02-18] MEDS ORDERED: fentaNYL 100 MCG/2 ML VIAL ONE (14:29)
[2017-02-18] MEDS ORDERED: SEVOFLURANE 1 UNIT/15 MINUTE INH ONE (14:29)
[2017-02-18] MEDS ORDERED: ePHEDrine 50 MG/ML AMP ONE (14:29)
[2017-02-18] MEDS ORDERED: HYDROmorphone 2 MG/1 ML VIAL ONE (14:39)
[2017-02-18] MEDS ORDERED: ONDANSETRON 4 MG/2 ML VIAL ONE (14:39)
[2017-02-18] MEDS ORDERED: HYDROmorphone 2 MG/1 ML VIAL IV PRN (14:41)
[2017-02-18] MEDS ORDERED: SODIUM CHLORIDE 0.9% 500 ML IV SCH (14:42)
[2017-02-18] MEDS ORDERED: NALOXONE 0.4 MG/ML VIAL IV PRN (15:12)
[2017-02-18] MEDS: CALCIUM ACETATE 667 MG CAPSULE PO SCH ×3 (15:15→20:54)
[2017-02-18] MEDS: PANTOPRAZOLE 40 MG TABLET PO SCH (15:15)
[2017-02-18] MEDS: DOCUSATE SODIUM 100 MG CAPSULE PO SCH ×2 (15:15→20:53)
[2017-02-18] MEDS: CINACALCET 30 MG TABLET PO SCH (15:16)
[2017-02-18] MEDS: LEVOFLOXACIN INJ 250 MG in PREMIX 1 EACH IV SCH (15:29)
--- NOTE | 2017-02-18 15:49 | Cardiology Progress Note ---
Assessment and Plan (1) Coronary artery disease Status: Chronic Current Visit: Yes Qualifiers: Coronary Disease-Associated Artery/Lesion type: [place] artery [place] vs. transplanted heart: [place] heart Associated angina: without angina Qualified Code(s): I25.10 - Atherosclerotic heart disease of [place] coronary artery without angina pectoris (2) Obstructive jaundice Problem details: ERCP unsuccessful due to large duodenal necrotic mass Status : Acute Current Visit: Yes (3) Pancreatic mass Status: Acute Current Visit: Yes (4) Dyslipidemia Status: Chronic Current Visit: Yes (5) End stage renal disease Status: Chronic Current Visit: Yes (6) Hypertension Status: Chronic Current Visit: Yes Qualifiers: Hypertension type: essential hypertension Qualified Code(s): I10 - Essential (primary) hypertension (7) Paroxysmal atrial fibrillation Status: Chronic Assessment and plan: This patient has experienced atrial fibrillation in the past and he is currently in atrial fibrillation. Continue AV domenica blockade agents resume anticoagulation once safe from a surgical standpoint. Current Visit: Yes Cardiology - PN: Subj Interval history: I discussed with Dr. Guaman this morning before the patient went to the operating room about his perioperative risk. The patient has no signs or symptoms of heart failure signs or symptoms of unstable angina but has atrial fibrillation. I saw the patient postoperatively this afternoon on the fourth floor examined significant amount of abdominal pain postoperatively but had no other complaints. He suffered a hypotensive episode in the perioperative period but now his pressures about 90. He has no complaints except abdominal pain he denies chest pain or dyspnea. The patient shows a palliative therapy to allow him to continue eating solid foods and mitigate his obstructive problems. His overall prognosis is extremely poor. He is at high risk for thromboembolic complications from his atrial fibrillation but also at high risk for bleeding in the perioperative period. We will monitor his heart rate and blood pressure closely his heart rates about 100 when I examined him his blood pressure was in the low to mid 90s. He was somewhat somnolent from his pain medicine but still having abdominal pain. He does actually have bowel sounds at this time on exam. Exam (Progress Note) - Constitutional Vitals: Period Temp Pulse Resp BP Sys/Watson Pulse Ox Last 24 Hr 97.9 F-99.3 F 80-110 16-22 84-129/48-81 92-97 General appearance: normal weight - Head Head exam: Present: normal inspection - Eye Eye exam: Present: EOMI Pupils: Present: NENITA - Respiratory Respiratory exam: Present: clear to auscultation bilaterally - Cardiovascular Cardiovascular exam: Present: irregular rhythm (Rates about 100) - GI/Abdominal GI/Abdominal exam: Present: soft, other (He has abdominal sounds that are diminished but there are there. His wound is dressing dry) - Extremities Exam Extremities exam: Present: other (Has a good thrill and bruit in his dialysis access) - Back Exam Back exam: Present: normal inspection - Neurological Exam Neurological exam: Present: alert, oriented X3 - Psychiatric Psychiatric exam: Present: normal affect, normal mood - Skin Skin exam: Present: normal color Result/EKG - Labs CBC & BMP: 02/18/17 08:52 02/18/17 08:52 Labs: Laboratory Results - last 24 hr 02/18/17 02/18/17 08:52 08:52 Hgb 8.9 L Hct 26.0 L Potassium 4.6
--- NOTE | 2017-02-18 16:26 | Nephrology Progress Note ---
Nephrology - PN: Subj Interval history: Patient is resting comfortably no acute changes. No shortness of breath, no abdominal pain. Plan for ERCP sometime this week. Will continue with current medical management for this patient. 02/15/2017. Patient states he had some abdominal discomfort this morning. Scheduled to have an ERCP done tomorrow. No fevers or chills. At this time dialysis today. 02/16/2017. The patient is now status post drainage of common bile duct due to pancreatic mass. Patient is resting comfortably. No fevers or chills. 02/18/2017. Patient is now status post further surgical procedure of lobe of the liver that shows evidence of metastatic disease. Continue with dialysis. Exam (PN)-Nephrology - Vital Signs Vital signs: Period Temp Pulse Resp BP Sys/Watson Pulse Ox Last 24 Hr 97.9 F-99.3 F 80-110 16-22 84-129/48-81 92-97 - General Appearance General appearance: well-developed, well-nourished EENT: ATNC Neck: supple Respiratory: clear Cardiology: regular rate, regular rhythm Gastrointestinal: normoactive bowel sounds, no tenderness Neurologic: alert and oriented x3 Musculoskeletal: no cyanosis, no clubbing Psychiatric: mood/affect appropriate, cooperative - Lab 02/18/17 08:52 02/18/17 08:52 Most recent lab results Calcium 7.9 MG/DL (8.5-10.1) L 02/17/17 09:48 Assessment and Plan (1) Obstructive jaundice Problem details: ERCP unsuccessful due to large duodenal necrotic mass Status : Acute Current Visit: Yes (2) Pancreatic mass Status: Acute Current Visit: Yes (3) End stage renal disease Status: Chronic Assessment and plan: Continue with schedule hemodialysis for this patient. Current Visit: Yes (4) Hypertension Status: Chronic Current Visit: Yes Qualifiers: Hypertension type: essential hypertension Qualified Code(s): I10 - Essential (primary) hypertension
[2017-02-18] MEDS: HYDROmorphone PCA 30 MG/30 ML SYRINGE IV SCH (16:44)
--- NOTE | 2017-02-18 17:00 | Hospitalist Progress Note ---
Assessment and Plan (1) Pancreatic mass Status: Acute Assessment and plan: Patient had a gastric outlet obstruction secondary to metastatic pancreatic cancer. He is s/p Laparotomy with gastrojejunostomy and Ventral umbilical hernia repair For outpatient palliative chemotherapy Plan Follow Surgery and Oncology's recommendations Current Visit: Yes (2) Hypertension Status: Chronic Assessment and plan: stable Current Visit: Yes Qualifiers: Hypertension type: essential hypertension Qualified Code(s): I10 - Essential (primary) hypertension (3) End stage renal disease Status: Chronic Assessment and plan: on hemodialysis Current Visit: Yes (4) Paroxysmal atrial fibrillation Status: Chronic Assessment and plan: chronic- Consider anticoagulation especially in the light of pancreatic cancer Current Visit: Yes (5) Obstructive jaundice Problem details: ERCP unsuccessful due to large duodenal necrotic mass Status : Acute Assessment and plan: due to metastatic pancreatic cancer- Follow Surgery and GI's recommendations Current Visit: Yes Hospitalist: Subjective Interval history: Patient had a Laparotomy with gastrojejunostomy and Ventral umbilical hernia repair today, primary for a gastric outlet obstruction secondary to metastatic pancreatic cancer Exam - Constitutional Vitals: Period Temp Pulse Resp BP Sys/Watson Pulse Ox Last 24 Hr 97.9 F-99.3 F 80-110 16-22 84-129/46-81 92-97 General appearance: no acute distress - Head Head exam: Present: normal inspection - Respiratory Respiratory exam: Present: clear to auscultation bilaterally - Cardiovascular Cardiovascular exam: Present: regular rate and rhythm - GI/Abdominal GI/Abdominal exam: Present: normal bowel sounds - Extremities Exam Extremities exam: Present: normal inspection Results - Labs CBC & BMP: 02/18/17 08:52 02/18/17 08:52 Lab Results: I have reviewed the past 24 hour labs
[2017-02-19] MEDS: ZALEPLON 5 MG CAPSULE PO PRN ×2 (01:13→23:53)
[2017-02-19 05:44] LABS: Basophils # 0.1 10*3/uL (0.0-0.2); Basophils % 0.7 % (0.0-0.8); Eosinophils # 0.3 10*3/uL (0.0-0.87); Eosinophils % 3.7 % (0.00-10.9); Hematocrit 25.8 VOL% (42.0-52.0); Hemoglobin 8.7 GM/DL (14.0-18.0); Immature Granulocytes % 0.9 %; Immature Granulocytes Absolute 0.08 #; Lymphocytes # 0.6 10*3/uL (1.4-4.0); Lymphocytes % 6.5 % (21.2-54.2); Mean Corpuscular HGB Conc 33.7 GM/DL (32-36); Mean Corpuscular Hemoglobin 30 PG (27-34); Mean Corpuscular Volume 87.8 FL (87-102); Mean Platelet Volume 10.2 FL (9.6-12.0); Monocytes % 11.1 % (1.7-12.7); Neutrophils # 6.7 10*3/uL (1.4-7.4); Neutrophils % 77.1 % (38.7-73.9); Platelet Count 244 T/CUMM (130-400); Red Blood Count 2.94 MC/CUMM (3.8-5.5); Red Cell Distribution Width 22.3 % (9.3-17.3); White Blood Count 8.6 T/CUMM (4-12)
[2017-02-19 06:12] LABS: Calcium 7.4 MG/DL (8.5-10.1); Magnesium 2.1 MG/DL (1.8-2.4); Osmolality,Calculated 285.8 MOS/KG (273-304)
[2017-02-19 07:14] LABS: Hypochromasia 1+
[2017-02-19 07:15] LABS: Microcytosis 1+; Ovalocytes Slight; Platelet Estimate Normal; Target Cells Few
--- NOTE | 2017-02-19 08:30 | Oncology Progress Note ---
Oncology Subjective PN Interval history: This unfortunate man has end-stage renal disease as well as pancreatic cancer producing biliary obstruction. He has had a catheter placed in his biliary ductal system for drainage and is being considered for bypass of GI obstruction. He is on hemodialysis. It is very unlikely that I would recommend palliative chemotherapy under any circumstances. Most of the drugs, if not all of the effective ones, are contraindicated in renal failure and liver failure. He remains jaundiced. We can continue to monitor him and see if his jaundice will improve enough to consider any palliative measures but I think there is a low likelihood that he will ever receive any significant improvement in his condition and quality of life from chemotherapy. Exam - Constitutional Vitals: Period Temp Pulse Resp BP Sys/Watson Pulse Ox Last 24 Hr 97.8 F-98.8 F 89-115 16-22 84-129/44-78 92-97 Results - Labs CBC & BMP: 02/19/17 04:58 02/19/17 04:58
--- NOTE | 2017-02-19 09:30 | Gastrointestinal Progress Note ---
<Jacey Conklin - Last Filed: 02/19/17 09:27> Assessment and Plan (1) Pancreatic mass Status: Acute Assessment and plan: 02/19-postop day 1 gastrojejunostomy. Tolerating clear liquids at present. No complaints of nausea vomiting abdominal pain. No repeat LFTs noted for today. Plan an addendum to follow Dr. Cardenas. 02/18-plans noted for gastrojejunostomy today. Oncology consult noted as well as below. Plan an addendum to followed by Dr. Cardenas. 02/17-ERCP findings noted on yesterday. PTC placement also negative yesterday. We will recheck CMP today. Plan an addendum to followed by Dr. Cardenas 02/15-no changes at this time. We will plan to postpone ERCP tomorrow to allow patient to dialyze today. Continue to monitor this time. Plan an addendum to followed by Dr. Cardenas. 02/12-3-4 week history of abdominal pain, with nausea, vomiting and diarrhea. Admitted with elevated bilirubin at [address] of abdomen of 4.2 cm pancreatic mass as well as 27 mm mass in left lobe of liver suspicious for metastatic lesion. CA-19-9 elevated at 409. Father plan an addendum to followed by Dr. Cardenas. Current Visit: Yes Gastroenterology - PN: Subj Interval history: CC: Pancreatic mass Patient is seen sitting up in bed awake and alert. He is status post gastrojejunostomy on yesterday. He tolerated this well and having expected postoperative pain. He denies any nausea or vomiting and is tolerating clear liquids at present. He states he has not had a bowel movement and not passing flatus at this time. Abdomen is soft, mild tenderness noted. PTC catheter in place with moderate amount of drainage. ROS: Denies shortness of breath or chest Exam (Progress Note) - Constitutional Vitals: Period Temp Pulse Resp BP Sys/Watson Pulse Ox Last 24 Hr 97.8 F-98.8 F 89-115 16-22 84-129/44-78 92-97 General appearance: normal weight, no acute distress - Head Head exam: Present: normal inspection, normocephalic - Eye Eye exam: Present: scleral icterus. Absent: other (Lids and conjunctive are unremarkable) - ENT ENT exam: Present: normal exam, normal oropharynx - Neck Neck exam: Present: normal inspection - Respiratory Respiratory exam: Present: clear to auscultation bilaterally. Absent: rales, rhonchi, wheezes - Cardiovascular Cardiovascular exam: Present: regular rate and rhythm. Absent: diastolic murmur , JVD, systolic murmur - GI/Abdominal GI/Abdominal exam: Present: normal bowel sounds, soft. Absent: ascites, distended, mass, organomegaly, tenderness - Extremities Exam Extremities exam: Present: normal inspection, full ROM - Back Exam Back exam: Present: normal inspection - Neurological Exam Neurological exam: Present: alert, oriented X3 - Psychiatric Psychiatric exam: Present: normal affect, normal mood - Skin Skin exam: Present: normal color, warm, dry Results - Labs CBC & BMP: 02/19/17 04:58 02/19/17 04:58 Lab Results: I have reviewed the past 24 hour labs <Peter Cardenas - Last Filed: 02/19/17 13:09> Exam (Progress Note) - Constitutional Vitals: Period Temp Pulse Resp BP Sys/Watson Pulse Ox Last 24 Hr 97.8 F-98.8 F 89-115 16-22 84-129/44-78 92-97 Results - Labs CBC & BMP: 02/19/17 04:58 02/19/17 04:58
--- NOTE | 2017-02-19 09:57 | Dialysis Note ---
Dialysis Note - Dialysis Note Mr. Millan is seen during his hemodialysis. He is tolerating it well. He underwent gastrojejunostomy creation yesterday and looks good postop.
[2017-02-19] MEDS: DOCUSATE SODIUM 100 MG CAPSULE PO SCH ×2 (10:25→21:10)
[2017-02-19] MEDS: CALCIUM ACETATE 667 MG CAPSULE PO SCH ×3 (10:25→21:09)
[2017-02-19] MEDS: LABETALOL 200 MG TABLET PO SCH ×2 (10:25→21:09)
[2017-02-19 10:33] LABS: Albumin 1.8 G/DL (3.4-5.0); Bilirubin,Direct 11.14 MG/DL (0.0-0.20); Total Protein 5.6 G/DL (6.4-8.3)
[2017-02-19 10:36] LABS: Bilirubin,Total 14.1 MG/DL (0.2-1.0)
--- NOTE | 2017-02-19 12:00 | Event Note ---
This patient has metastatic pancreatic cancer and underwent palliative gastrojejunostomy yesterday. He said he has not had any liquids illness on this morning. No nausea or vomiting. Abdominal exam is benign. Vital signs are stable. Labs are stable. We will continue full liquid diet over the weekend and see how he does.
[2017-02-19] MEDS: PANTOPRAZOLE 40 MG TABLET PO SCH (15:17)
[2017-02-19] MEDS: CINACALCET 30 MG TABLET PO SCH (15:17)
[2017-02-19] MEDS: HYDROmorphone PCA 30 MG/30 ML SYRINGE IV SCH (16:58)
--- NOTE | 2017-02-19 17:00 | Hospitalist Progress Note ---
Assessment and Plan (1) Pancreatic mass Status: Acute Assessment and plan: Patient had a gastric outlet obstruction secondary to metastatic pancreatic cancer. He is s/p Laparotomy with gastrojejunostomy and Ventral umbilical hernia repair For outpatient palliative chemotherapy Plan Follow Surgery and Oncology's recommendations Current Visit: Yes (2) Hypertension Status: Chronic Assessment and plan: stable Current Visit: Yes Qualifiers: Hypertension type: essential hypertension Qualified Code(s): I10 - Essential (primary) hypertension (3) End stage renal disease Status: Chronic Assessment and plan: on hemodialysis Current Visit: Yes (4) Paroxysmal atrial fibrillation Status: Chronic Assessment and plan: chronic- Consider anticoagulation especially in the light of pancreatic cancer Current Visit: Yes (5) Obstructive jaundice Problem details: ERCP unsuccessful due to large duodenal necrotic mass Status : Acute Assessment and plan: due to metastatic pancreatic cancer- Follow Surgery and GI's recommendations Current Visit: Yes Hospitalist: Subjective Interval history: Patient seen just before going for his dialysis session. He had no new complaint. Exam - Constitutional Vitals: Period Temp Pulse Resp BP Sys/Watson Pulse Ox Last 24 Hr 97.8 F-98.8 F 104-115 16-20 98-120/44-76 93-96 General appearance: no acute distress - Head Head exam: Present: normal inspection - Respiratory Respiratory exam: Present: clear to auscultation bilaterally - Cardiovascular Cardiovascular exam: Present: regular rate and rhythm - GI/Abdominal GI/Abdominal exam: Present: normal bowel sounds - Extremities Exam Extremities exam: Present: normal inspection - Neurological Exam Neurological exam: Present: alert Results - Labs CBC & BMP: 02/19/17 04:58 02/19/17 04:58 Lab Results: I have reviewed the past 24 hour labs
[2017-02-19] MEDS: ONDANSETRON 4 MG/2 ML VIAL IV PRN (18:15)
--- NOTE | 2017-02-20 08:30 | Nephrology Progress Note ---
Nephrology - PN: Subj Interval history: Patient denies shortness of breath. Review of systems GI denies nausea or vomiting Physical exam general the patient's chronically ill-appearing, he has conjunctival jaundice Assessment/plan 1. End-stage renal disease-we will continue hemodialysis support 2. Pancreatic cancer with liver metastases-I told the patient on average a person does not survive more than 6 months with this diagnosis, and also told him that it did not sound like chemotherapy was an option in his situation upon reviewing the oncologist's note. The patient is status post gastric bypass procedure and is tolerating p.o. intake better now. I also told the patient if he develops pain and a lot of suffering from his condition he may want to consider withdrawing from dialysis at that time. 3. Anemia-patient's hematocrit stable around 26% 4. Secondary hyperparathyroidism patient continues on Sensipar and PhosLo Exam (PN)-Nephrology - Vital Signs Vital signs: Period Temp Pulse Resp BP Sys/Watson Pulse Ox Last 24 Hr 98.2 F-98.4 F 108-110 - 113-119/51-69 98-98 - Lab 02/19/17 04:58 02/19/17 04:58 Most recent lab results Calcium 7.4 MG/DL (8.5-10.1) L 02/19/17 04:58 Magnesium 2.1 MG/DL (1.8-2.4) 02/19/17 04:58
[2017-02-20] MEDS: DOCUSATE SODIUM 100 MG CAPSULE PO SCH ×2 (08:52→21:33)
[2017-02-20] MEDS: LABETALOL 200 MG TABLET PO SCH ×2 (08:52→21:33)
[2017-02-20] MEDS: CALCIUM ACETATE 667 MG CAPSULE PO SCH ×3 (08:52→21:33)
[2017-02-20] MEDS: CINACALCET 30 MG TABLET PO SCH (08:53)
[2017-02-20] MEDS: PANTOPRAZOLE 40 MG TABLET PO SCH (08:53)
--- NOTE | 2017-02-20 08:57 | Oncology Progress Note ---
Oncology Subjective PN Interval history: Unresectable pancreatic carcinoma with obstructive jaundice: No lab work today. Total bilirubin yesterday was 14.1. Alkaline phosphatase was 833. The serum albumin was 1.8 reflecting malnutrition. Chronic renal failure: On hemodialysis Anemia, multifactorial: Hemoglobin is 8.7 with a normal white cell count of 8600 and a normal platelet count 244,000. I have nothing to offer on this patient at this time. If his liver function improves, we might consider palliative chemotherapy but there is a limit to the medications that we can use because of his chronic renal failure and they are practically none we can use with biliary obstruction that he has presently. Exam - Constitutional Vitals: Period Temp Pulse Resp BP Sys/Watson Pulse Ox Last 24 Hr 98.2 F-98.4 F 106-110 18-22 94-119/51-69 95-98 Results - Labs CBC & BMP: 02/19/17 04:58 02/19/17 04:58
--- NOTE | 2017-02-20 11:16 | Hospitalist Progress Note ---
Assessment and Plan (1) Pancreatic mass Status: Acute Assessment and plan: Patient had a gastric outlet obstruction secondary to metastatic pancreatic cancer. He is s/p Laparotomy with gastrojejunostomy and Ventral umbilical hernia repair For outpatient palliative chemotherapy Plan Follow Surgery and Oncology's recommendations Current Visit: Yes (2) Hypertension Status: Chronic Assessment and plan: stable/borderline Current Visit: Yes Qualifiers: Hypertension type: essential hypertension Qualified Code(s): I10 - Essential (primary) hypertension (3) End stage renal disease Status: Chronic Assessment and plan: on hemodialysis Current Visit: Yes (4) Paroxysmal atrial fibrillation Status: Chronic Assessment and plan: chronic- Consider anticoagulation especially in the light of pancreatic cancer Current Visit: Yes (5) Obstructive jaundice Problem details: ERCP unsuccessful due to large duodenal necrotic mass Status : Acute Assessment and plan: due to metastatic pancreatic cancer- Follow Surgery and GI's recommendations Current Visit: Yes Hospitalist: Subjective Interval history: Patient seen this am and he had no new complaints. Family members are leaning towards home Hospice.Oncology is following. Exam - Constitutional Vitals: Period Temp Pulse Resp BP Sys/Watson Pulse Ox Last 24 Hr 98.2 F-98.4 F 106-110 18-22 94-119/51-69 95-98 General appearance: no acute distress, other (juandiced) - Head Head exam: Present: normal inspection - Respiratory Respiratory exam: Present: clear to auscultation bilaterally - Cardiovascular Cardiovascular exam: Present: regular rate and rhythm - GI/Abdominal GI/Abdominal exam: Present: normal bowel sounds - Extremities Exam Extremities exam: Present: normal inspection Results - Labs CBC & BMP: 02/19/17 04:58 02/19/17 04:58 Lab Results: I have reviewed the past 24 hour labs
[2017-02-20] MEDS: BACLOFEN 10 MG TABLET PO PRN (12:34)
[2017-02-20] MEDS: HYDROmorphone PCA 30 MG/30 ML SYRINGE IV SCH (14:17)
[2017-02-20] MEDS: LEVOFLOXACIN INJ 250 MG in PREMIX 1 EACH IV SCH (15:02)
[2017-02-20] MEDS: SODIUM CHLORIDE 0.9% 1,000 ML IV SCH (15:02)
--- NOTE | 2017-02-20 17:08 | Event Note ---
02/20/2017. Patient is postop hernia repair and his incision looks clean and dry at this point time. Patient also has pancreatic cancer and has a catheter and biliary tree and his bilirubin is down to 14 today. His abdomen remains somewhat distended with few bowel sounds present at this time. Patient is complaining of some nausea and vomiting at times. Will increase his IV fluids just count of make sure that he does not get dehydrated and see if his nausea and vomiting clears enough for him to begin get some nutrition in.
[2017-02-20] MEDS: ZALEPLON 5 MG CAPSULE PO PRN (21:33)
[2017-02-20] MEDS: ONDANSETRON 4 MG/2 ML VIAL IV PRN (22:22)
[2017-02-21] MEDS: SODIUM CHLORIDE 0.9% 1,000 ML IV SCH ×4 (02:09→22:42)
[2017-02-21 05:38] LABS: Basophils % 0.4 % (0.0-0.8); Eosinophils # 0.4 10*3/uL (0.0-0.87); Hematocrit 25.3 VOL% (42.0-52.0); Hemoglobin 8.3 GM/DL (14.0-18.0); Immature Granulocytes % 0.8 %; Immature Granulocytes Absolute 0.07 #; Lymphocytes # 0.7 10*3/uL (1.4-4.0); Lymphocytes % 7.4 % (21.2-54.2); Mean Corpuscular HGB Conc 32.8 GM/DL (32-36); Mean Corpuscular Hemoglobin 29 PG (27-34); Mean Corpuscular Volume 86.9 FL (87-102); Mean Platelet Volume 9.4 FL (9.6-12.0); Monocytes # 1.2 10*3/uL (0.11-0.8); Monocytes % 13.8 % (1.7-12.7); Neutrophils # 6.6 10*3/uL (1.4-7.4); Neutrophils % 73.6 % (38.7-73.9); Platelet Count 329 T/CUMM (130-400); Red Blood Count 2.91 MC/CUMM (3.8-5.5); Red Cell Distribution Width 21.3 % (9.3-17.3); White Blood Count 8.9 T/CUMM (4-12)
[2017-02-21 06:12] LABS: Albumin 1.7 G/DL (3.4-5.0); Calcium 7.5 MG/DL (8.5-10.1); Potassium 4.5 MMOL/L (3.5-5.1); Total Protein 5.7 G/DL (6.4-8.3)
[2017-02-21 06:13] LABS: Calcium 7.6 MG/DL (8.5-10.1); Magnesium 2.3 MG/DL (1.8-2.4); Potassium 4.5 MMOL/L (3.5-5.1)
[2017-02-21 06:19] LABS: Bilirubin,Total 13.5 MG/DL (0.2-1.0)
--- NOTE | 2017-02-21 07:49 | Nephrology Progress Note ---
Nephrology - PN: Subj Interval history: Patient denies shortness of breath. Review of systems GI denies nausea or vomiting, he was able to take in some milk yesterday and he is also noticed that he does not have acid reflux like he was having Physical exam general the patient is in no acute distress Assessment/plan 1. End-stage renal disease 2. Pancreatic cancer 3. Anemia-patient's hematocrit stable around 25% 4. Secondary hyperparathyroidism Exam (PN)-Nephrology - Vital Signs Vital signs: Period Temp Pulse Resp BP Sys/Watson Pulse Ox Last 24 Hr 97.2 F-98.7 F 63-123 18-20 92-99/52-58 90-95 - Lab 02/21/17 05:11 02/21/17 05:11 Most recent lab results Calcium 7.5 MG/DL (8.5-10.1) L 02/21/17 05:11 Magnesium 2.3 MG/DL (1.8-2.4) 02/21/17 05:11
[2017-02-21] MEDS: CINACALCET 30 MG TABLET PO SCH (08:50)
[2017-02-21] MEDS: PANTOPRAZOLE 40 MG TABLET PO SCH (08:51)
[2017-02-21] MEDS: CALCIUM ACETATE 667 MG CAPSULE PO SCH ×3 (08:51→21:19)
[2017-02-21] MEDS: LABETALOL 200 MG TABLET PO SCH ×2 (08:51→21:19)
[2017-02-21] MEDS: DOCUSATE SODIUM 100 MG CAPSULE PO SCH ×2 (08:51→21:19)
[2017-02-21] MEDS: BACLOFEN 10 MG TABLET PO PRN (08:51)
[2017-02-21] MEDS: LACTULOSE 20 GM/30 ML UDCUP PO PRN (08:52)
[2017-02-21] MEDS: ONDANSETRON 4 MG/2 ML VIAL IV PRN ×3 (08:52→21:20)
--- NOTE | 2017-02-21 11:45 | Event Note ---
02/21/2017. 1130 hrs. Patient still not eating although he is drinking but apparently he may not be eating because he has not had a diet ordered. They said he has had a little nausea and vomiting still in his abdomen is a little bit quiet and no bowel movement to date since surgery. Incision is clean and dry. Little concerned that he may not be ready to go home if he is not able to keep food down at this time. We will try to advance his diet and see how he basically does at this point.
--- NOTE | 2017-02-21 11:45 | Hospitalist Progress Note ---
Assessment and Plan (1) Pancreatic mass Status: Acute Assessment and plan: Patient had a gastric outlet obstruction secondary to metastatic pancreatic cancer. He is s/p Laparotomy with gastrojejunostomy and Ventral umbilical hernia repair For outpatient palliative chemotherapy Plan Follow Surgery and Oncology's recommendations Possible Home Hospice in am Current Visit: Yes (2) Hypertension Status: Chronic Assessment and plan: stable/borderline Current Visit: Yes Qualifiers: Hypertension type: essential hypertension Qualified Code(s): I10 - Essential (primary) hypertension (3) End stage renal disease Status: Chronic Assessment and plan: on hemodialysis Current Visit: Yes (4) Paroxysmal atrial fibrillation Status: Chronic Assessment and plan: chronic- Consider anticoagulation especially in the light of pancreatic cancer Current Visit: Yes (5) Obstructive jaundice Problem details: ERCP unsuccessful due to large duodenal necrotic mass Status : Acute Assessment and plan: due to metastatic pancreatic cancer- Follow Surgery and GI's recommendations Current Visit: Yes Hospitalist: Subjective Interval history: Patient seen this am, he had no new complaints. Hopefully dc on home Hospice in am Exam - Constitutional Vitals: Period Temp Pulse Resp BP Sys/Watson Pulse Ox Last 24 Hr 97.2 F-98.7 F 63-123 18-20 88-99/50-58 90-96 General appearance: no acute distress - Head Head exam: Present: normal inspection - Neck Neck exam: Present: normal inspection, other (reduced juandice) - Cardiovascular Cardiovascular exam: Present: regular rate and rhythm - GI/Abdominal GI/Abdominal exam: Present: distended - Extremities Exam Extremities exam: Present: normal inspection Results - Labs CBC & BMP: 02/21/17 05:11 02/21/17 05:11 Lab Results: I have reviewed the past 24 hour labs
[2017-02-21] MEDS: HYDROmorphone PCA 30 MG/30 ML SYRINGE IV SCH (15:16)
[2017-02-21] MEDS: ZALEPLON 5 MG CAPSULE PO PRN (21:19)
[2017-02-22 06:10] LABS: Basophils % 0.2 % (0.0-0.8); Eosinophils # 0.3 10*3/uL (0.0-0.87); Eosinophils % 4.2 % (0.00-10.9); Hematocrit 25.2 VOL% (42.0-52.0); Hemoglobin 8.3 GM/DL (14.0-18.0); Immature Granulocytes % 0.9 %; Immature Granulocytes Absolute 0.07 #; Lymphocytes # 0.7 10*3/uL (1.4-4.0); Mean Corpuscular HGB Conc 32.9 GM/DL (32-36); Mean Corpuscular Hemoglobin 29 PG (27-34); Mean Corpuscular Volume 86.9 FL (87-102); Mean Platelet Volume 9.2 FL (9.6-12.0); Monocytes # 1.2 10*3/uL (0.11-0.8); Monocytes % 14.3 % (1.7-12.7); Neutrophils # 5.9 10*3/uL (1.4-7.4); Neutrophils % 72.4 % (38.7-73.9); Platelet Count 348 T/CUMM (130-400); Red Cell Distribution Width 21.4 % (9.3-17.3); White Blood Count 8.1 T/CUMM (4-12)
[2017-02-22 06:40] LABS: Band Neutrophils 3 % (0-10); Hypochromasia 2+; Lymphocytes 12 % (20-55); Microcytosis 1+; Platelet Estimate Adequate; Polychromasia Slight; Segmented Neutrophils 75 % (50-85); Target Cells Slight; Total Cells Counted 100
[2017-02-22 06:43] LABS: Albumin 1.6 G/DL (3.4-5.0); Calcium 7.6 MG/DL (8.5-10.1); Potassium 4.9 MMOL/L (3.5-5.1); Total Protein 5.6 G/DL (6.4-8.3)
--- NOTE | 2017-02-22 07:19 | Event Note ---
No events over the weekend. The patient is tolerating liquids and does not have any nausea or vomiting but just does not feel hungry for regular food. I will be fine with him taking and what ever he feels up for at this point. He can be discharged home from my standpoint. He may not have a real great appetite anyways because of his advanced cancer but there is no clinical evidence that there are any problems with his gastrointestinal bypass.
--- NOTE | 2017-02-22 08:08 | Oncology Progress Note ---
Oncology Subjective PN Interval history: Total bilirubin down to 12.0. The alkaline phosphatase is 498. The patient's serum creatinine is going to remain elevated and is 9.9 today. He is still not a candidate for chemotherapy and may never be. Exam - Constitutional Vitals: Period Temp Pulse Resp BP Sys/Watson Pulse Ox Last 24 Hr 98.0 F-99.0 F 88-117 18-20 80-112/50-60 93-98 Results - Labs CBC & BMP: 02/22/17 04:24 02/22/17 04:24
[2017-02-22] MEDS: PANTOPRAZOLE 40 MG TABLET PO SCH (09:24)
[2017-02-22] MEDS: CINACALCET 30 MG TABLET PO SCH (09:24)
[2017-02-22] MEDS: DOCUSATE SODIUM 100 MG CAPSULE PO SCH ×2 (09:24→21:09)
[2017-02-22] MEDS: CALCIUM ACETATE 667 MG CAPSULE PO SCH ×3 (09:24→21:10)
[2017-02-22] MEDS: LABETALOL 200 MG TABLET PO SCH ×2 (09:24→21:10)
[2017-02-22] MEDS ORDERED: TUBERCULIN SKIN TEST 0.1 ML SYRINGE INTRADERM ONE (09:39)
--- NOTE | 2017-02-22 09:42 | Case Mgmt Physician Query Form ---
TB Signs and Symptoms Screening ([place]) INSTRUCTIONS: To be completed annually on residents/staff with a significant Tuberculin Skin Test (TST) upon admission/hire or a prior significant TST. To be completed on all staff at hire. Please respond to each listed symptom with an (X) in either the "YES" or "NO" box. Do you currently have any of the following symptoms: YES NO ( ) (x ) A cough If yes, is it: ( ) Productive ( ) Non- productive ( ) ( x) Hemoptysis (spitting up blood) ( ) (x ) Chest pains ( ) ( x) Weight Loss ( ) (x ) Fever ( ) (x ) Night Sweats ( ) ( x) Weakness ( ) ( x) Loss of Appetite ( ) (x ) Difficulty Breathing If you answered YES" to any of the above questions, how long have symptoms been present? Comments: DAMARI
--- NOTE | 2017-02-22 11:51 | Discharge Summary ---
<Shefali Prasad - Last Filed: 02/22/17 11:58> Hospital Course - Hospital Course Hospital Course: Mr. Millan is a 57 yr old male with a past medical history of hypertension, coronary artery disease with PCI, atrial fibrillation, dyslipidemia, end-stage renal disease on dialysis (MWF), and obstructive sleep that was in dialysis on when he was noted to be jaundiced. Pt. was taken for an ultrasound and obstructive jaundice was noted. Pt. did report a 50 lb weight loss as well as nausea, vomiting, diarrhea that was ongoing for 3-4 weeks. We were contacted by the psychology technician to admit the patient and consult them. On admission, total bilirubin was noted to be 17. CT abdomen and pelvis revealed '4.2 cm pancreatic mass which likely represents pancreatic carcinoma'. Patient has had a lengthy hospital stays totalling 11 days. Patient has been seen by several services during his stay including nephrology, surgery, GI, cardiology, and oncology. Nephrology handled dialysis patient. Patient was dialyzed during his stay several times. Creatinine levels fluctuated from 7 to 10. Today he is 9.9. He GI evaluated patient. Gallbladder ultrasound showed suggestion of mass in the head of the pancreas at 7.2 cm with distended bile duct and pancreatic ducts. Pt.'s cancer biomarkers CA-19-9 was elevated at 409. Pt. was started on IV antibiotics. ERCP was planned but was unsuccessful due to large duodenal necrotic mass. Pt did have a internal/external biliary drain placed on 02/17. Patient was unable to tolerate liquids because of his obstruction. Cardiology also evaluated patient for proximal atrial fibrillation. Because of his jaundice and need for further other procedures, pt was started on a low dose anticoagulant. Surgery saw patient and he had a gastrojejunostomy placed. Oncology was consulted for palliative bypass. Patient has a poor prognosis. Not a candidate for chemo. Today, the patient is stable for discharge. He has reached maximal benefit of this hospital stay and will be discharged home with hospice. Further instructions to follow per Dr. Jasso.I spoke with Family this am and they stated that Inpatient Hospice will be ideal for patient because nobody will be available for patient 21/12 at home. physician practice manager is currently working on placement, he will go as soon as a bed is available. Discharge Plan - Discharge Data Disposition: Disch/Xfer to Snf - Discharge Medications No Action Labetalol Tab [Trandate Tab] 200 mg PO BID Calcium Acetate 2,668 mg PO TID Cinacalcet HCl [Sensipar] 90 mg PO DAILY NIFEdipine [Nifedipine ER] 60 mg PO DAILY - Follow Up or Referral - Forms/Instructions Exam - Constitutional Vitals: Period Temp Pulse Resp BP Sys/Watson Pulse Ox Last 24 Hr 97.2 F-99.0 F 88-117 18-20 80-112/50-60 91-98 Discharge Results Labs on day of discharge: Labs from last 24 hours 02/22/17 02/22/17 04:24 04:24 WBC 8.1 RBC 2.90 L Hgb 8.3 L Hct 25.2 L MCV 86.9 L MCH 29 MCHC 32.9 RDW 21.4 H Plt Count 348 MPV 9.2 L Neut % (Auto) 72.4 Lymph % (Auto) 8.0 L [place] % (Auto) 14.3 H Eos % (Auto) 4.2 Baso % (Auto) 0.2 Neut # (Auto) 5.9 Lymph # (Auto) 0.7 L [place] # (Auto) 1.2 H Eos # (Auto) 0.3 Baso # (Auto) 0.0 Total Counted 100 Immature Gran % 0.9 Nucleated RBC % 0.0 Immature Gran # 0.07 Segmented Neutrophils 75 Band Neutrophils 3 Lymphocytes 12 L Monocytes 10 Nucleated RBCs # 0.00 Platelet Estimate Adequate Immature Plt Fraction 0.0 Polychromasia Slight Hypochromasia 2+ Microcytosis 1+ Target Cells Slight Sodium 136 Potassium 4.9 Chloride 97 L Carbon Dioxide 27 Anion Gap 16.9 H BUN 75 H D Creatinine 9.90 H GFR Calculation 7 BUN/Creatinine Ratio 7.00 Glucose 88 Calculated Osmolality 292.0 Calcium 7.6 L Total Bilirubin 12.00 H* AST 51 H ALT 41 Alkaline Phosphatase 498 H Total Protein 5.6 L Albumin 1.6 L Globulin 4.0 H Albumin/Globulin Ratio 0.4 L DS: Provider Date of admission: 02/11/17 16:05 Primary care physician: . No PCP Attending physician on admission: Kyle Appiah MD Consults: 02/11/17 16:04 Consult to Physician [CONS] Routine Comment: Consulting Provider: Oli Child Jr. Consult to Specialist Group: Nephrology When should Consulting Provider be notified: Now 02/11/17 16:14 Consult to Physician [CONS] Routine Comment: MASS OF HEAD OF PANCREAS-OBSTRUCTIVE JAUNDICE Consulting Provider: Peter Cardenas Consulting Provider Notified: Yes When should Consulting Provider be notified: Now Consult to Specialist Group: Gastroenterology When should Consulting Provider be notified: Now Person Notified: FARZANEH Date Notified: 02/12/17 Time Notified: 08:45 02/15/17 12:54 Consult to Physician [CONS] PREOP Comment: pre op anesthesia clearance/new onset AFIB Consulting Provider: Cardiology - [facility] 02/16/17 10:49 Consult to Physician [CONS] Routine Comment: Biliary obstruction for percutaneous drainage Consulting Provider: Kishor Zhu 02/17/17 11:57 Consult to Physician [CONS] Routine Comment: pancreatic mass Consulting Provider: Artis Guaman Consulting Provider Notified: Yes When should Consulting Provider be notified: Now Consult to Specialist Group: Surgery When should Consulting Provider be notified: Now Person Notified: GARRETT Date Notified: 02/17/17 Time Notified: 12:42 02/17/17 11:58 Consult to Physician [CONS] Routine Comment: pancreatic cancer Consulting Provider: Kyle Morales Consulting Provider Notified: Yes When should Consulting Provider be notified: Now Consult to Specialist Group: Oncology When should Consulting Provider be notified: Now Person Notified: CARRI Date Notified: 02/17/17 Time Notified: 12:35 02/18/17 07:19 Consult to Anesthesiology [CONS] Routine Consulting Provider: Reason for Anesthesiology: Pre-op Clearance 02/19/17 10:13 Consult to Case Mgmt/Social Srvs [CONS] Routine Reason for Case Mgmt/Social Srvs: Hospice Referral 02/22/17 08:01 Consult to Physician [CONS] Routine Comment: Perc biliary drain leaking Consulting Provider: Kishor Zhu When should Consulting Provider be notified: Now Discharging clinician: Shefali Prasad NP <Mely Jasso - Last Filed: 02/22/17 13:30> Diagnosis - Discharge Diagnosis (1) Pancreatic mass Status: Acute (2) Hypertension Status: Chronic (3) End stage renal disease Status: Chronic (4) Paroxysmal atrial fibrillation Status: Chronic (5) Obstructive jaundice Status: Acute Discharge Plan - Discharge Data Condition at Discharge: Stable Discharge Diet: advance to your usual diet Activity: resume usual activities as tolerated Exam - Constitutional General appearance: no acute distress, other (jaundice) - Respiratory Respiratory exam: Present: clear to auscultation bilaterally - Cardiovascular Cardiovascular exam: Present: regular rate and rhythm - GI/Abdominal GI/Abdominal exam: Present: distended - Extremities Exam Extremities exam: Present: normal inspection
[2017-02-22] MEDS ORDERED: MIDAZOLAM 2 MG/2 ML VIAL IV ONE (13:45)
[2017-02-22] MEDS ORDERED: fentaNYL 100 MCG/2 ML VIAL IV ONE (13:45)
--- NOTE | 2017-02-22 13:51 | IR History and Physical Update ---
IR Pre-Procedure - History and Physical H&P was reviewed, the patient examined and there: are no changes in the patients condition since last H&P was completed. Reason for procedure:: 57-year-old male with obstructing duodenal mass from pancreatic carcinoma. Has undergone gastrojejunostomy bypass, and last week had a percutaneous biliary drain catheter placed. At some point during the night, the biliary drain catheter was inadvertently pulled back approximately 80% its total length. Patient needs replacement of the biliary drain catheter today. - Dictation Physical: refer to H&P completed by admitting physician - Physical Exam Vital Signs: Last Vital Signs Temp 97.2 F L 02/22/17 08:00 Pulse 95 H 02/22/17 08:00 Resp 20 02/22/17 08:00 BP 105/55 02/22/17 08:00 Pulse Ox 91 L 02/22/17 08:00 Mental Status: alert and oriented - Sedation IR anesthesia plan for sedation: minimal ASA Class: IV - Risks Risks: Procedures explained. Risks discussed include, but not limited to, the following:[Pain, bleeding, bile infection, biloma, tube failure ] All questions answered. The following alternatives were discussed:[ None] Risks and benefits discussed with: patient Consent obtained from: patient Assessment and Plan - Time spent with patient Time spent with patient: Less than 30 minutes (1) Pancreatic mass Status: Acute Assessment and plan: Assessment: Biliary drain catheter is almost certainly out of the liver. Plan: We will attempt recanalization of existing tract and if not mature, new stick will be required. Percutaneous biliary drain catheter placement for today. Will evaluate for metal stent placement. Current Visit: Yes
--- NOTE | 2017-02-22 14:01 | Dialysis Note ---
Dialysis Note - Dialysis Note Patient was seen on hemodialysis, he is tolerating this well will continue his treatment unchanged.
[2017-02-22] MEDS ORDERED: ONDANSETRON 4 MG/2 ML VIAL ONE (15:12)
[2017-02-22] MEDS: ONDANSETRON 4 MG/2 ML VIAL IV PRN ×2 (15:15→15:30)
[2017-02-22] MEDS ORDERED: ONDANSETRON 4 MG/2 ML VIAL IV ONE (15:45)
[2017-02-22] MEDS: HYDROmorphone PCA 30 MG/30 ML SYRINGE IV SCH (16:15)
[2017-02-22] MEDS: SODIUM CHLORIDE 0.9% 1,000 ML IV SCH ×2 (16:16→19:28)
--- NOTE | 2017-02-22 16:42 | CT Report ---
Exam: CT abdomen without intravenous contrast Exam date: 02/22/2017 406 PM Clinical History: 57 years,Male, biliary drain replacement abdominal pain, generalized Technique: Axial computed tomography images of the abdomen without intravenous contrast. All CT scans at this facility use one or more dose reduction techniques. Automated exposure control, MA/KV adjustment per patient size (including targeted exam Square dose is matched to indication) or iterative reconstruction technique Comparison: February 11, 2017 Findings: Lower thorax: Volume loss with posterior parenchymal consolidations, likely atelectasis. Four-chamber cardiomegaly. Abdomen: Liver: Interval placement of common bile duct stents extend past the ampulla distal tip appears to extend beyond the medial margin of the mass. Percutaneous drain from right hepatic approach is been placed across the stent and loop within the third portion of duodenum. Residual contrast and air within the intrahepatic ducts as well as gallbladder. Filling defects within the gallbladder, likely represents inspissated bile/sludge. Pancreas: Likely no change in overall size and appearance of the infiltrative mass arising from the pancreatic head or extensive conglomerate of ruy hepatis, portacaval and retroperitoneal lymph nodes. Spleen: Spleen is enlarged Adrenals: No adrenal mass. Kidneys and ureters: Atrophic with scattered cysts, some of which demonstrate calcifications along the wall. Punctate medullary calcifications, nonobstructing stones versus dystrophic parenchymal calcifications. Stomach and bowel: Fluid and air distended loops of small bowel with residual contrast within the colon. Intraperitoneal space: Mild stranding within the mesentery, likely represents trace edema Bones/joints: No acute osseous abnormality. Impression: 1. Interval technically successful placement of common bile duct stent across the infiltrative, obstructive pancreatic head mass 2. Percutaneous biliary drain from right hepatic lobe approach extends across the stent into the third portion of duodenum 3. Residual pneumobilia and contrast within the intrahepatic ducts, expected postprocedural 4. Distended air and fluid-filled small bowel with residual contrast throughout the colon suggesting adynamic process 5. Bibasilar parenchymal consolidations, likely atelectasis.Could not exclude developing infectious process 6. Likely no change in size of the pancreatic head mass or extensive ruy hepatic, portacaval and retroperitoneal adenopathy since interval study PROCEDURE INTERPRETED AT [facility] DEPARTMENT OF RADIOLOGY Final Report Signed by: Robert Rey
--- NOTE | 2017-02-22 16:54 | Interventional Radiology Rpt ---
IR ins idris stent wdrain remain Indication: Obstructing pancreatic carcinoma. Patient had a internal/external biliary drain catheter which was dislodged overnight. Only the tip of the catheter remains deep to the skin. PERCUTANEOUS TRANSHEPATIC CHOLANGIOGRAM, STENTING OF COMMON BILE DUCT, PLACEMENT OF 10 BERMUDIAN INTERNAL/EXTERNAL BILIARY DRAIN CATHETER Description: A formal timeout was performed. The right abdomen was prepped and draped in sterile fashion. The existing catheter was studied under fluoroscopic observation in only the tip was shown to be deep to the skin. Regardless, the catheter was removed over a wire. A Kumpe catheter was then used to gently probe the liver capsule and, despite some retrograde filling within a very immature parenchymal tract, I was unable to advance the Kumpe catheter or wire through the liver across the original tract. Therefore, a new puncture site was made between the lateral right 10th and 11th ribs. An AccuStick needle was advanced directly into liver parenchyma. During pullback of the needle, bile return in the needle after one pass. Contrast injection confirmed positioning within a central right biliary radicle. The needle was removed over wire and the 8 Bolivian AccuStick sheath advanced into the common bile duct. A cholangiogram was then performed showing dilatation of the common bile duct and common hepatic duct, although not as severe as last week. Obstructing tumor at the distal common bile duct was again shown. Kumpe catheter was advanced over wire and with careful probing, the obstructed distal CBD was crossed until the tip of the Kumpe catheter was well into the upper abdomen. Contrast injection was performed showing the tip of the catheter to still be within tumor. Catheter was advanced even further into the third segment of the duodenum and a repeat contrast injection showed it to be within the duodenal lumen. Over a stiff Amplatz wire, the Kumpe catheter was removed. The CBD obstruction was stented with a 12 x 60 mm wall stent, followed by a 12 x 40 mm Wallstent placed in tandem with 10 mm overlap. After this, a cholangioplasty was performed 12 mm. The balloon was removed over wire and a 10 Bolivian internal/external biliary drain catheter was advanced until the pigtail was well in the third segment of the duodenum. Pigtail was formed and the wire removed. A final radiograph was then performed showing thrombus within the newly placed stent but otherwise adequate positioning of the stents and biliary drain. The newly placed internal/external biliary drain was sutured with 3-0 Prolene at the skin and a Percu-Stay situated. It was connected to a bag drain. Upon connecting to the bag drain, thin brown fluid returned, likely old hematoma within adynamic duodenum following the recent gastrojejunostomy bypass. After approximately 200 cc drained, drainage stopped, and after 10 minutes, appear to be primarily bile. However, to be cautious and make sure there is no abnormal tumor induced enterocolonic fistula, CT of the abdomen was ordered without contrast. Contrast: Omnipaque 350, 40 cc. Fluoroscopy: 10.6 minutes, 16 captured images. Impression: 1. Placement of 2 tandem 12 mm Wallstents for a total coverage length of 90 mm across otherwise occluded distal common bile duct extending well into the duodenum. 2. 10 Bolivian internal/external biliary drain catheter left in place for short-term drainage until the bile clears. Recommend repeat cholangiogram in 2-3 days to evaluate for possible removal of the internal/external biliary drain. PROCEDURE INTERPRETED AT [facility] DEPARTMENT OF RADIOLOGY Final Report Signed by: Kyle Russell M.D.
[2017-02-22] MEDS: SODIUM CHLORIDE 0.45% 1,000 ML IV SCH (19:27)
[2017-02-22] MEDS: LEVOFLOXACIN INJ 250 MG in PREMIX 1 EACH IV SCH (19:27)
--- NOTE | 2017-02-23 07:21 | Oncology Progress Note ---
Oncology Subjective PN Interval history: Patient with biliary obstruction. Drainage catheter in place. Lab work for today pending. His last total bilirubin was 12.0. It is unlikely that we will be able to treat this patient effectively in view of the fact that he has chronic renal failure and is on hemodialysis as well as having liver failure. Exam - Constitutional Vitals: Period Temp Pulse Resp BP Sys/Watson Pulse Ox Last 24 Hr 97.2 F-98.2 F 80-127 18-24 83-180/50-74 88-98 Results - Labs CBC & BMP: 02/22/17 04:24 02/22/17 04:24
[2017-02-23] MEDS: SODIUM CHLORIDE 0.9% 1,000 ML IV SCH ×2 (08:56→16:20)
[2017-02-23] MEDS: CINACALCET 30 MG TABLET PO SCH (08:58)
[2017-02-23] MEDS: DOCUSATE SODIUM 100 MG CAPSULE PO SCH (08:58)
[2017-02-23] MEDS: CALCIUM ACETATE 667 MG CAPSULE PO SCH ×2 (08:58→15:15)
[2017-02-23] MEDS: PANTOPRAZOLE 40 MG TABLET PO SCH (08:58)
[2017-02-23] MEDS: LABETALOL 200 MG TABLET PO SCH (08:58)
--- NOTE | 2017-02-23 11:49 | Hospitalist Progress Note ---
Assessment and Plan (1) Pancreatic mass Status: Acute Assessment and plan: Patient had a gastric outlet obstruction secondary to metastatic pancreatic cancer. He is s/p Laparotomy with gastrojejunostomy and Ventral umbilical hernia repair For outpatient palliative chemotherapy Plan Follow Surgery and Oncology's recommendations Waiting for NH placement. Hospice will not allow dialysis that patient desires. Current Visit: Yes (2) Hypertension Status: Chronic Assessment and plan: stable/borderline Current Visit: Yes Qualifiers: Hypertension type: essential hypertension Qualified Code(s): I10 - Essential (primary) hypertension (3) End stage renal disease Status: Chronic Assessment and plan: on hemodialysis Current Visit: Yes (4) Paroxysmal atrial fibrillation Status: Chronic Assessment and plan: chronic- Consider anticoagulation especially in the light of pancreatic cancer Current Visit: Yes (5) Obstructive jaundice Problem details: ERCP unsuccessful due to large duodenal necrotic mass Status : Acute Assessment and plan: due to metastatic pancreatic cancer- Follow Surgery and GI's recommendations Current Visit: Yes Hospitalist: Subjective Interval history: Patient is being worked up for a NH placement. manager paid advises a NH instead of Hospice because Family members still want dialysis and Hospice wouldnt allow this.His percutaneous biliary drain catheter was placed yesterday.His TB was paced this am. Earliest day for dc will be on . Exam - Constitutional Vitals: Period Temp Pulse Resp BP Sys/Watson Pulse Ox Last 24 Hr 97.6 F-98.2 F 80-127 18-24 83-180/50-74 88-99 General appearance: no acute distress - Head Head exam: Present: normal inspection - Respiratory Respiratory exam: Present: clear to auscultation bilaterally - GI/Abdominal GI/Abdominal exam: Present: normal bowel sounds, other (percutaneous drain in place) - Neurological Exam Neurological exam: Present: alert, oriented X3 Results - Labs CBC & BMP: 02/22/17 04:24 02/22/17 04:24 Lab Results: I have reviewed the past 24 hour labs
[2017-02-23] MEDS: SODIUM CHLORIDE 0.45% 1,000 ML IV SCH (16:20)
[2017-02-23] MEDS: HYDROmorphone PCA 30 MG/30 ML SYRINGE IV SCH (16:22)
--- NOTE | 2017-02-23 17:18 | Nephrology Progress Note ---
Nephrology - PN: Subj Interval history: Patient is resting comfortably no acute changes. No shortness of breath, no abdominal pain. Plan for ERCP sometime this week. Will continue with current medical management for this patient. 02/15/2017. Patient states he had some abdominal discomfort this morning. Scheduled to have an ERCP done tomorrow. No fevers or chills. At this time dialysis today. 02/16/2017. The patient is now status post drainage of common bile duct due to pancreatic mass. Patient is resting comfortably. No fevers or chills. 02/18/2017. Patient is now status post further surgical procedure of lobe of the liver that shows evidence of metastatic disease. Continue with dialysis. 02/23/2017. The patient is resting. Awaiting for alf placement for this patient. At this time continue with scheduled hemodialysis for this patient. Exam (PN)-Nephrology - Vital Signs Vital signs: Period Temp Pulse Resp BP Sys/Watson Pulse Ox Last 24 Hr 97.6 F-98.2 F 80-127 18-22 100-180/50-74 93-99 - General Appearance General appearance: fatigue, frail EENT: ATNC Neck: supple Respiratory: clear Cardiology: no edema, regular rate, regular rhythm Gastrointestinal: normoactive bowel sounds, no tenderness Integumentary: no rash Neurologic: alert and oriented x3 Musculoskeletal: no clubbing Psychiatric: mood/affect appropriate, cooperative - Lab 02/22/17 04:24 02/22/17 04:24 Most recent lab results Calcium 7.6 MG/DL (8.5-10.1) L 02/22/17 04:24 Magnesium 2.3 MG/DL (1.8-2.4) 02/21/17 05:11 Assessment and Plan (1) Obstructive jaundice Problem details: ERCP unsuccessful due to large duodenal necrotic mass Status : Acute Current Visit: Yes (2) Pancreatic mass Status: Acute Current Visit: Yes (3) End stage renal disease Status: Chronic Assessment and plan: Continue with schedule hemodialysis for this patient. Current Visit: Yes (4) Hypertension Status: Chronic Current Visit: Yes Qualifiers: Hypertension type: essential hypertension Qualified Code(s): I10 - Essential (primary) hypertension
[2017-02-24] MEDS: DOCUSATE SODIUM 100 MG CAPSULE PO SCH ×3 (02:34→21:24)
[2017-02-24] MEDS: CALCIUM ACETATE 667 MG CAPSULE PO SCH ×4 (02:34→21:25)
[2017-02-24] MEDS: LABETALOL 200 MG TABLET PO SCH ×3 (02:34→21:25)
[2017-02-24] MEDS ORDERED: SODIUM CHLORIDE 0.9% 500 ML IV ONE (03:28)
[2017-02-24] MEDS ORDERED: ATROPINE 1 % OPH SOLN 5 ML BOTTLE SL PRN (08:28)
--- NOTE | 2017-02-24 08:58 | Hospitalist Progress Note ---
Assessment and Plan (1) Pancreatic mass Status: Acute Assessment and plan: Patient had a gastric outlet obstruction secondary to metastatic pancreatic cancer. He is s/p Laparotomy with gastrojejunostomy and Ventral umbilical hernia repair and now has a percutaneous biliary drain catheter placed Unlikely will qualify for outpatient palliative chemotherapy. Prognosis is poor , patient looks worse today. Plan Comfort care only DC Dialysis He is a DNR Current Visit: Yes (2) Hypertension Status: Chronic Assessment and plan: stable/borderline Current Visit: Yes Qualifiers: Hypertension type: essential hypertension Qualified Code(s): I10 - Essential (primary) hypertension (3) End stage renal disease Status: Chronic Assessment and plan: on hemodialysis Current Visit: Yes (4) Paroxysmal atrial fibrillation Status: Chronic Assessment and plan: chronic- Current Visit: Yes (5) Obstructive jaundice Problem details: ERCP unsuccessful due to large duodenal necrotic mass Status : Acute Assessment and plan: due to metastatic pancreatic cancer- Comfort care only Current Visit: Yes Hospitalist: Subjective Interval history: Patient is a 57yr old with a gastric outlet obstruction secondary to metastatic pancreatic cancer. He is s/p Laparotomy with gastrojejunostomy and Ventral umbilical hernia repair. He is also s/p percutaneous biliary drain catheter in place. He was meant to go home on Hospice but family members states they prefer NH initially because they still want patient to continue with dialysis. Overnight, patient's bp dropped requiring IVF bolus. This am, he looks sicker and has stated that he no longer wants dialysis and wants to be a DNR. He wants comfort measures only.We will now look for an [place] patient hospice instead of a NH. Prognosis is very poor. Exam - Constitutional Vitals: Period Temp Pulse Resp BP Sys/Watson Pulse Ox Last 24 Hr 97.6 F-98.8 F 107-115 18-22 80-111/49-67 95-100 General appearance: other (juandiced) - Respiratory Respiratory exam: Present: clear to auscultation bilaterally - GI/Abdominal GI/Abdominal exam: Present: normal bowel sounds - Extremities Exam Extremities exam: Present: normal inspection - Neurological Exam Neurological exam: Present: alert, oriented X3 Results - Labs CBC & BMP: 02/22/17 04:24 02/22/17 04:24 Lab Results: I have reviewed the past 24 hour labs
[2017-02-24] MEDS: PANTOPRAZOLE 40 MG TABLET PO SCH (09:21)
[2017-02-24] MEDS: CINACALCET 30 MG TABLET PO SCH (09:21)
[2017-02-24] MEDS: ONDANSETRON 4 MG/2 ML VIAL IV PRN ×2 (09:27→17:00)
[2017-02-24] MEDS: MORPHINE 2 MG/1 ML SYRINGE IV PRN ×2 (09:28→17:00)
[2017-02-24] MEDS: SODIUM CHLORIDE 0.9% 1,000 ML IV SCH ×4 (09:29→18:41)
[2017-02-24] MEDS: LEVOFLOXACIN INJ 250 MG in PREMIX 1 EACH IV SCH (13:49)
--- NOTE | 2017-02-24 15:39 | Event Note ---
The patient is status post a gastrojejunostomy. He is afebrile. He is now comfort measures only and dialysis is being discontinued. Surgical incision is clean, dry and intact with reinaldo intact. Abdomen is soft. No local evidence of infection. No further surgical services are required. Reinaldo may be removed when wound looks well-healed at approximately 2 weeks postop.
[2017-02-25] MEDS: SODIUM CHLORIDE 0.9% 1,000 ML IV SCH (07:07)
[2017-02-25 08:04] VITALS: BP 118/54
[2017-02-25] MEDS: CALCIUM ACETATE 667 MG CAPSULE PO SCH (09:24)
[2017-02-25] MEDS: CINACALCET 30 MG TABLET PO SCH (09:26)
[2017-02-25] MEDS: LABETALOL 200 MG TABLET PO SCH (09:26)
[2017-02-25] MEDS: DOCUSATE SODIUM 100 MG CAPSULE PO SCH (09:27)
[2017-02-25] MEDS: PANTOPRAZOLE 40 MG TABLET PO SCH (09:28)
--- NOTE | 2017-02-25 10:09 | Discharge Summary ---
Hospital Course - Hospital Course Hospital Course: Mr. Millan is a 57 yr old male with a past medical history of hypertension, coronary artery disease with PCI, atrial fibrillation, dyslipidemia, end-stage renal disease on dialysis (MWF), and obstructive sleep that was in dialysis on when he was noted to be jaundiced. Pt. was taken for an ultrasound and obstructive jaundice was noted. Pt. did report a 50 lb weight loss as well as nausea, vomiting, diarrhea that was ongoing for 3-4 weeks. We were contacted by the feed in worker to admit the patient and consult them. On admission, total bilirubin was noted to be 17. CT abdomen and pelvis revealed '4.2 cm pancreatic mass which likely represents pancreatic carcinoma'. Patient has had a lengthy hospital stays totalling 11 days. Patient has been seen by several services during his stay including nephrology, surgery, GI, cardiology, and oncology. Nephrology handled dialysis patient. Patient was dialyzed during his stay several times. Creatinine levels fluctuated from 7 to 10. Today he is 9.9. Patient was anemic and had 2 units of packed red blood cells. He GI evaluated patient. Gallbladder ultrasound showed suggestion of mass in the head of the pancreas at 7.2 cm with distended bile duct and pancreatic ducts. Pt.'s cancer biomarkers CA-19-9 was elevated at 409. Pt. was started on IV antibiotics. ERCP was planned but was unsuccessful due to large duodenal necrotic mass. Pt did have a internal/external biliary drain placed on 02/17. Patient was unable to tolerate liquids because of his obstruction. Cardiology also evaluated patient for proximal atrial fibrillation. Because of his jaundice and need for further other procedures, pt was started on a low dose anticoagulant. Surgery saw patient and he had a gastrojejunostomy placed. Oncology was consulted for palliative care Patient will be discharge on hospice at [facility] today. He will be given morphine concentrate, fentanyl patch and prn norco for hospice end of life care. He feels his pain is controlled. Patient will no longer receive dialysis. Patient seen and examined. Hospital course reviewed and edited - Time spent with patient Time with patient DS: Greater than 30 minutes (40 min g) Discharge Plan - Discharge Data Disposition: Hospice - Medical Facility Condition at Discharge: Stable Discharge Diet: regular diet (soft ) Activity: resume usual activities as tolerated, wear oxygen at all times Hygiene: no restrictions Weight Bearing at Discharge: full weight bearing - Discharge Medications New Atropine 1 % Oph Soln [Isopto Atropine 1%] 2 drop SL Q6H PRN bottle PRN Reason: Secretions Baclofen Tab [Lioresal] 10 mg PO TID PRN tablet PRN Reason: hiccups Bisacodyl Tab [Dulcolax Tab] 10 mg PO DAILY PRN tablet PRN Reason: Constipation fentaNYL 25 MCG/HR PATCH [Duragesic 25 Patch] 1 patch TRANSDERM Q3DAY #5 patch HYDROcodone/ACETAMIN 7.5-325 [Whitman 7.5-325] 1 tablet PO Q4H PRN #60 tablet PRN Reason: Pain Moderate (4-7) Morphine Sulfate [Morphine Conc Liquid] 1 ml PO Q1-2H PRN #30 ml PRN Reason: Abdominal Pain Continue Labetalol Tab [Trandate Tab] 200 mg PO BID NIFEdipine [Nifedipine ER] 60 mg PO DAILY Discontinued Calcium Acetate 2,668 mg PO TID Cinacalcet HCl [Sensipar] 90 mg PO DAILY - Follow Up or Referral - Forms/Instructions Exam - Constitutional Vitals: Period Temp Pulse Resp BP Sys/Watson Pulse Ox Last 24 Hr 98.2 F-99.3 F 107-116 16-22 92-118/50-68 95-100 General appearance: normal weight, no acute distress - Respiratory Respiratory exam: Present: clear to auscultation bilaterally, decreased breath sounds - GI/Abdominal GI/Abdominal exam: Present: distended, hypoactive bowel sounds. Absent: tenderness - Extremities Exam Extremities exam: Present: normal inspection, normal capillary refill DS: Provider Date of admission: 02/11/17 16:05 Primary care physician: . No PCP Attending physician on admission: Kyle Appiah MD Consults: 02/11/17 16:04 Consult to Physician [CONS] Routine Comment: Consulting Provider: Oli Child Jr. Consult to Specialist Group: Nephrology When should Consulting Provider be notified: Now 02/11/17 16:14 Consult to Physician [CONS] Routine Comment: MASS OF HEAD OF PANCREAS-OBSTRUCTIVE JAUNDICE Consulting Provider: Peter Cardenas Consulting Provider Notified: Yes When should Consulting Provider be notified: Now Consult to Specialist Group: Gastroenterology When should Consulting Provider be notified: Now Person Notified: FARZANEH Date Notified: 02/12/17 Time Notified: 08:45 02/15/17 12:54 Consult to Physician [CONS] PREOP Comment: pre op anesthesia clearance/new onset AFIB Consulting Provider: Cardiology - [facility] 02/16/17 10:49 Consult to Physician [CONS] Routine Comment: Biliary obstruction for percutaneous drainage Consulting Provider: Kishor Zhu 02/17/17 11:57 Consult to Physician [CONS] Routine Comment: pancreatic mass Consulting Provider: Artis Guaman Consulting Provider Notified: Yes When should Consulting Provider be notified: Now Consult to Specialist Group: Surgery When should Consulting Provider be notified: Now Person Notified: GARRETT Date Notified: 02/17/17 Time Notified: 12:42 02/17/17 11:58 Consult to Physician [CONS] Routine Comment: pancreatic cancer Consulting Provider: Kyle Morales Consulting Provider Notified: Yes When should Consulting Provider be notified: Now Consult to Specialist Group: Oncology When should Consulting Provider be notified: Now Person Notified: CARRI Date Notified: 02/17/17 Time Notified: 12:35 02/18/17 07:19 Consult to Anesthesiology [CONS] Routine Consulting Provider: Reason for Anesthesiology: Pre-op Clearance 02/19/17 10:13 Consult to Case Mgmt/Social Srvs [CONS] Routine Reason for Case Mgmt/Social Srvs: Hospice Referral 02/22/17 08:01 Consult to Physician [CONS] Routine Comment: Perc biliary drain leaking Consulting Provider: Kishor Zhu When should Consulting Provider be notified: Now Discharging clinician: Evonne Torres MD
== END 2017-02-25 11:30 | DRG 423 ==
LOC: N.ULTRA 13:32 → SUATTDRO 16:05 → N.4E 16:05
PROVIDERS: ADMIT Internal Medicine; ATTEND Internal Medicine